=== PATIENT | male | born 1980 | race Caucasian/White ===

== ENCOUNTER 2017-02-25 15:55 | Emergency (ER) | payer OTHER ==
[~2017-02-25] VITALS: Ht 175.3 cm; Wt 74.8 kg
[~2017-02-25 15:55] MED LIST: AUGMENTIN 875-1 EACH PO; CLINDAMYCIN HC300 MG PO; DOXYCYCLINE HY100 MG PO; IBUPROFEN800 MG PO; INDOMETHACIN25 MG PO; NAPROXEN500 MG PO; NORCO 5-325 TA1 EACH PO; OMEPRAZOLE20 MG PO; TRAMADOL HCL50 MG PO
[2017-02-25] MEDS ORDERED: PENICILLIN V P500 MG PO (16:05)
[2017-02-25] MEDS ORDERED: CLEOCIN HCL300 MG PO (16:18)
[2017-02-25] MEDS ORDERED: ULTRAM50 MG PO (16:18)
== END 2017-02-25 16:40 | disposition home or self-care (01) ==
LOC: ED 15:55
DX: K08.89 Other specified disorders of teeth and supporting structures (principal); F17.200 Nicotine dependence, unspecified, uncomplicated
CPT/HCPCS: 99283

== ENCOUNTER 2017-12-02 21:35 | Emergency (ER) | payer OTHER ==
[~2017-12-02] VITALS: Ht 175.3 cm; Wt 98.4 kg
[~2017-12-02 21:35] MED LIST changes: +CLEOCIN HCL300 MG PO; +PENICILLIN V P500 MG PO; +ULTRAM50 MG PO
[2017-12-03] MEDS ORDERED: PROTONIX40 MG PO (00:01)
--- NOTE | 2017-12-03 12:34 | EKG ---
[facility] [address] [place] [address] Signed Normal sinus rhythm with sinus arrhythmia Normal ECG When compared with ECG of 31-OCT-2016 11:39, No significant change was found Confirmed by DARRIUS LITTLEJOHN MD ([id number]) on 12/03/2017 12:34:21 PM Electronically Signed By: DARRIUS LITTLEJOHN MD 12/03/17 1234 PATIENT NAME: MARIA EBROOKLYN Electrocardiogram DATE OF : 80 PHYSICIAN: DARRIUS LITTLEJOHN MD REPORT #: [id number] REPORT IS CONFIDENTIAL AND NOT TO BE RELEASED WITHOUT AUTHORIZATION
== END 2017-12-03 00:15 | disposition home or self-care (01) ==
LOC: ED 21:35
DX: R10.11 Right upper quadrant pain (principal); R10.12 Left upper quadrant pain; F17.200 Nicotine dependence, unspecified, uncomplicated
CPT/HCPCS: 74177; 80053; 81001; 83690; 85025; 93005; 93010; 99284; Q9967

== ENCOUNTER 2019-05-26 15:31 | Emergency (ER) | payer OTHER ==
[~2019-05-26] VITALS: Ht 177.8 cm; Wt 99.8 kg
--- OUTSIDE RECORDS SUMMARY | ~2019-05-26 | XMS | Encounter Summary ---
Demographics + + + | Address | [address] | | | [place] [address] | + + + | Home Phone | | + + + | Preferred Language | Unknown | + + + | Marital Status | Single | + + + | Confucianism Affiliation | Unknown | + + + | Race | Unknown | + + + | Ethnic Group | Unknown | + + + Author + + + | Author | [facility] | | | and Mohsenana | + + + | Organization | [facility] | | | and Mohsenana | + + + | Address | Unknown | + + + | Phone | Unavailable | + + + Support + + +---------+ + | Name | Relationship | Address | Phone | + + +---------+ + | Alysa Ojeda | ECON | Unknown | | + + +---------+ + Care Team Providers + +------+ + | Care Fashion Buying Internship Name | Role | Phone | + +------+ + PCP | Unavailable | + +------+ + Encounter Details +--------+ + + + + | Date | Type | Department | Care Team | Description | +--------+ + + + + | 06/23/ | Hospital | [facility] | | | | 1993 | Encounter | [facility] EM[facility] | | | | | | CENTER [address] | | | | | | [place] | | | | | | [address] | | | | | | [phone] | | | +--------+ + + + + Social History + +-------+ +--------+------+ | Tobacco Use | Types | Packs/Day | Years | Date | | | | | Used | | + +-------+ +--------+------+ | Never Assessed | | | | | + +-------+ +--------+------+ + + + | Sex Assigned at | Date Recorded | | | | + + + | Not on file | | + + + + + + + | Job Start Date | Occupation | Industry | + + + + | Not on file | Not on file | Not on file | + + + + + + + + | Travel History | Travel Start | Travel End | + + + + + + | No recent travel history available. | + + documented as of this encounter Plan of Treatment Not on filedocumented as of this encounter Visit Diagnoses Not on filedocumented in this encounter"
--- OUTSIDE RECORDS SUMMARY | ~2019-05-26 | XMS | Encounter Summary ---
Demographics + + + | Address | [address] | | | [place] [address] | + + + | Home Phone | | + + + | Preferred Language | Unknown | + + + | Marital Status | Single | + + + | Scientologist Affiliation | Unknown | + + + | Race | Unknown | + + + | Ethnic Group | Unknown | + + + Author + + + | Author | [facility] | | | and Mohsenana | + + + | Organization | [facility] | | | and Mohsenana [...] Team Providers + +------+ + | Care Rn Infusion Name | Role | Phone | + +------+ + | Sandeep Garza DO | PCP | | + +------+ + Encounter Details +--------+ + + + + | Date | Type | Department | Care Team | Description | +--------+ + + + + | 01/29/ | Orders Only | [facility] | Provider, | | | 2018 | | SYSTEM GENERIC OP | [address] | | | | | [address] | [address] | | | | | [address] [place], [place] | [place] [address] | | | | | [address] | | | | | | [phone] | | | +--------+ + + + + Social History + + + +--------+ + | Tobacco Use | Types | Packs/Day | Years | Date | | | | | Used | | + + + +--------+ + | Current Every Day | Cigarettes | 0.25 | 20 | Started: 04/22/1994 | | Smoker | | | | | + + + +--------+ + + +---+---+---+ | Smokeless Tobacco: | | | | | Never Used | | | | + +---+---+---+ + + | Comments: 04/29/17: "Almost done" | + + + + +---------+ + | Alcohol Use | Drinks/Week | oz/Week | Comments | + + +---------+ + | No | | | | + + +---------+ + + + + | Sex Assigned at [...] Visit Diagnoses Not on filedocumented in this encounter
--- OUTSIDE RECORDS SUMMARY | ~2019-05-26 | XMS | Encounter Summary ---
Demographics + + + | Address | [address] | | | [place] [address] | + + + | Home Phone | | + + + | Preferred Language | Unknown | + + + | Marital Status | Single | + + + | Sabianism Affiliation | Unknown | + + + | Race | Unknown | + + + | Ethnic Group | Unknown | + + + Author + + + | Author | [facility] | | | and Mohsenana | + + + | Organization | [facility] | | | and Mohsenana [...] Team Providers + +------+ + | Care Furnace Charging Machine Operator Name | Role | Phone | + +------+ + | Sandeep Garza DO | PCP | | + +------+ + Encounter Details +--------+ + + + + | Date | Type | Department | Care Team | Description | +--------+ + + + + | 01/18/ | Abstract | [facility] [place] | Derrick De Dios | | | 2017 | | PULMONARY [address] | [address] | | | | | [place], | [place] | | | | | [place] [address] | [place] [address] | | | | | [phone] | [phone] | | | | | | | | +--------+ + + + + Social History + + + +--------+------+ | Tobacco Use | Types | Packs/Day | Years | Date | | | | | Used | | + + + +--------+------+ | Former Smoker | Cigarettes | 0.5 | 20 | | + + + +--------+------+ + +---+---+---+ | Smokeless Tobacco: | | | | | Never Used | | | | + +---+---+---+ + + +---------+ + | Alcohol Use [...]
--- OUTSIDE RECORDS SUMMARY | ~2019-05-26 | XMS | Encounter Summary ---
Demographics + + + | Address | [address] | | | [place] [address] | + + + | Home Phone | | + + + | Preferred Language | Unknown | + + + | Marital Status | Single | + + + | Jainism Affiliation | Unknown | + + + | Race | Unknown | + + + | Ethnic Group | Unknown | + + + Author + + + | Author | [facility] | | | and Mohsenana | + + + | Organization | [facility] | | | and Mohsenana [...] Team Providers + +------+ + | Care Dry House Tender Name | Role | Phone | + +------+ + | Sandeep Garza DO | PCP | | + +------+ + Reason for Visit + + + | Reason | Comments | + + + | Dental Pain | | + + + Encounter Details +--------+ + + + + | Date | Type | Department | Care Team | Description | +--------+ + + + + | 07/05/ | Emergency | [facility] | Padilla Abrams | Pain due to dental | | 2015 | | MED CTR EM[facility]Y | Jeffry Valdez MD | caries (Primary Dx) | | | | CENTER [address] | [address] | | | | | [place], [place] | [place], [place] | | | | | [address] | [address] | | | | | [phone] | | | +--------+ + + + + Social History + + + +--------+------+ | Tobacco Use | Types | Packs/Day | Years | Date | | | | | Used | | + + + +--------+------+ | Current Every Day | Cigarettes | 0.5 | 20 | | | Smoker | | | | | + + + +--------+------+ + [...] + + documented as of this encounter Last Filed Vital Signs + + + + + | Vital Sign | Reading | Time Taken | Comments | + + + + + | Blood Pressure | 167/120 | 07/05/2014 8:00 PM | | | | | PST | | + + + + + | Pulse | 81 | 07/05/2014 8:00 PM | | | | | PST | | + + + + + | Temperature | 36.8 C (98.3 F) | 07/05/2014 8:00 PM | | | | | PST | | + + + + + | Respiratory Rate | 16 | 07/05/2014 8:00 PM | | | | | PST | | + + + + + | Oxygen Saturation | 99% | 07/05/2014 8:00 PM | | | | | PST | | + + + + + | Inhaled Oxygen | - | - | | | Concentration | | | | + + + + + | Weight | 78 kg (172 lb) | 07/05/2014 8:00 PM | | | | | PST | | + + + + + | Height | 175.3 cm (5' 9") | 07/05/2014 8:00 PM | | | | | PST | | + + + + + | Body Mass Index | 25.4 | 07/05/2014 8:00 PM | | | | | PST | | + + + + + documented in this encounter Discharge Instructions Instructions Padilla Abrams MD - 07/05/2014Followup with a dentist. Return f or severe worsening symptoms. Use ibuprofen or Advil for pain unless contraindicated. Try using lbei-ttu-zkeqnts oral analgesic medications to assist in easing the pain. Practice good oral hygiene, do saltwater gargles for mouth cleansing. Please followup with dental clinic, the lower available resources. Dental Resources in the [facility] Care: [phone] Emergency care check-in times Tuesday through : 7 AM and 11 AM Tuesday: 7 AM This is a first-come first-serve service with limited space so arrive early and expect a possible several hour wait. [facility] [place]: [phone] [facility] information: [phone] documented in this encounter Medications at Time of Discharge + + + +---------+ + + | Medication | Sig | Dispensed | Refills | Start | End Date | | | | | | Date | | + + + +---------+ + + | amoxicillin | Take 1 capsule by | 30 | 0 | 07/05/19 | | | (AMOXIL) 500 MG | mouth 3 times daily | capsule | | 15 | 5 | | capsule | for 10 days. | | | | | + + + +---------+ + + | | Take 1 tablet by | | 0 | | | | HYDROcodone-acetamin | mouth every 6 hours | | | | 7 | | ophen (NORCO) | as needed. | | | | | | 7.5-325 mg per | | | | | | | tablet | | | | | | + + + +---------+ + + | ibuprofen | Take 1 tablet by | 40 | 0 | 07/05/19 | | | (ADVIL,MOTRIN) 600 | mouth every 6 hours | tablet | | 15 | 5 | | MG tablet | as needed for Pain | | | | | | | for up to 10 days. | | | | | + + + +---------+ + + documented as of this encounter Plan of Treatment Not on filedocumented as of this encounter Visit Diagnoses + + | Diagnosis | + + | Pain due to dental caries - Primary | + + documented in this encounter Administered Medications + + + +--------+------+------+ | Medication Order | MAR | Action | Dose | Rate | Site | | | Action | Date | | | | + + + +--------+------+------+ | amoxicillin (AMOXIL) capsule | Dispense | 07/05/19 | 500 mg | | | | (ED prepack) 500 mg 500 mg, | to Home | 15 9:20 | | | | | Oral, EVERY 8 HOURS (3 times per | | PM PST | | | | | day), First dose on Tue07/05/14 at | | | | | | | 2200, Take 1 tablet(s) orally | | | | | | | every 8 hours . Dispense for | | | | | | | home use. Enter order number on | | | | | | | MAR when dispensing., | | | | | | + + + +--------+------+------+ +---+---+ | | | +---+---+ + +-------+ +---------+---+---+ | bupivacaine 0.5%-epinephrine | Given | 07/05/19 | 1.8 mLs | | | | 1:200,000 0.5-1:956157 % | | 15 8:38 | | | | | injection 1.8 mL 1.8 mL, | | PM PST | | | | | Infiltration, ONCE, Tue07/05/14 at | | | | | | | 2030, For 1 dose | | | | | | + +-------+ +---------+---+---+ +---+---+ | | | +---+---+ documented in this encounter
--- OUTSIDE RECORDS SUMMARY | ~2019-05-26 | XMS | Clinical Summary ---
Demographics + + + | Address | [address] | | | [place] [address] | + + + | Home Phone | | + + + | Preferred Language | Unknown | + + + | Marital Status | Single | + + + | Anabaptist Affiliation | Unknown | + + + | Race | Unknown | + + + | Ethnic Group | Unknown | + + + Author + + + | Author | [facility] | | | and Mohsenana | + + + | Organization | [facility] | | | and Mohsenana | [...] Team Providers + +------+ + | Care Hospice Care Consultant Name | Role | Phone | + +------+ + | Sandeep Garza DO | PCP | | + +------+ + Allergies No Known Allergies Medications + + + +---------+------+------+-------+ | Medication | Sig | Dispensed | Refills | Star | End | Statu | | | | | | t | Date | s | | | | | | Date | | | + + + +---------+------+------+-------+ | metoprolol | Take 1 tablet by | | 0 | 03/0 | | Activ | | succinate | mouth daily. | | | 6/20 | | e | | (TOPROL-XL) 50 mg 24 | | | | 18 | | | | hr tablet | | | | | | | + + + +---------+------+------+-------+ | clindamycin | take 1 capsule by | | 0 | 01/1 | | Activ | | (CLEOCIN) 300 MG | mouth four times a | | | 12/21 | | e | | capsule | day until finished | | | 19 | | | + + + +---------+------+------+-------+ | NIFEdipine (ADALAT | take 1 tablet by | | 1 | 11/0 | | Activ | | CC) 30 mg 24 hr | mouth once daily | | | 20 | | e | | tablet | | | | 18 | | | + + + +---------+------+------+-------+ | penicillin 500 mg | take 1 tablet by | | 0 | 01/0 | | Activ | | tablet | mouth every 8 hours | | | 20 | | e | | | until finished | | | 19 | | | + + + +---------+------+------+-------+ | traMADol (ULTRAM) | take 1 tablet by | | 0 | 02/0 | | Activ | | 50 mg tablet | mouth EVERY 4 TO 6 | | | 5/20 | | e | | | HOURS if needed for | | | 19 | | | | | pain | | | | | | + + + +---------+------+------+-------+ Active Problems + + + | Problem | Noted Date | + + + | Cough in adult | 03/24/2017 | + + + | Precordial pain | 12/22/2016 | + + + Family History + + +------+ + | Medical History | Relation | Name | Comments | + + +------+ + | Hypertension | Father | | | + + +------+ + | Hypertension | Father | | | + + +------+ + | Hypertension | Mother | | | + + +------+ + + +------+--------+ + | Relation | Name | Status | Comments | + +------+--------+ + | Father | | | | + +------+--------+ + | Father | | Alive | | + +------+--------+ + | Father | | | | + +------+--------+ + | Mother | | | | + +------+--------+ + | Mother | | Alive | | + +------+--------+ + Social History + + + +--------+ [...] | | + +---+---+---+ + + | Tobacco Cessation: Ready to Quit: No; Counseling Given: No | | Comments: 04/29/17: "Almost done" | + [...] recent travel history available. | + + Last Filed Vital Signs + + + + + | Vital Sign | Reading | Time Taken | Comments | + + + + + | Blood Pressure | 114/55 | 09/09/2017 11:29 AM | | | | | PST | | + + + + + | Pulse | 45 | 09/09/2017 11:29 AM | | | | | PST | | + + + + + | Temperature | 36.8 C (98.3 F) | 09/09/2017 11:29 AM | | | | | PST | | + + + + + | Respiratory Rate | 16 | 09/09/2017 11:29 AM | | | | | PST | | + + + + + | Oxygen Saturation | 97% | 04/29/2017 8:33 AM | | | | | PDT | | + + + + + | Inhaled Oxygen | - | - | | | Concentration | | | | + + + + + | Weight | 93.9 kg (207 lb) | 09/09/2017 11:29 AM | | | | | PST | | + + + + + | Height | 177.8 cm (5' 10") | 09/09/2017 11:29 AM | | | | | PST | | + + + + + | Body Mass Index | 29.7 | 09/09/2017 11:29 AM | | | | | PST | | + + + + + Plan of Treatment + + + + + | Health Maintenance | Due Date | Last Done | Comments | + + + + + | Vaccine: | | | | | Pneumococcal 19-64 | 6 | | | | (1 of 1 - PPSV23) | | | | + + + + + | Vaccine: | | | | | Dtap/Tdap/Td (1 - | 9 | | | | Tdap) | | | | + + + + + | Vaccine: Influenza | | | | | (#1) | 9 | | | + + + + + Results Not on filefrom Last 3 Months Insurance + +--------+ +--------+ +---------+--------+ | Payer | Benefi | Subscriber | Effect | Phone | Address | Type | | | t Plan | ID | arben | | | | | | / | | Dates | | | | | | Group | | | | | | + +--------+ +--------+ +---------+--------+ | [employer] | [employer] | [id number] | 01/07/20 | [phone] | | Medica | | MEDICAID HMO | HEALTH | | 17-Pre | 1 | | id | | | MDCD | | sent | | | | | | [place]MO [place] | | | | | | + +--------+ +--------+ +---------+--------+ + +--------+ +--------+ + + | Guarantor Name | Accoun | Relation to | Date | Phone | Billing Address | | | t Type | Patient | of | | | | | | | | | | + +--------+ +--------+ + + | Gregorio Ojeda | Person | Self [birth year] | [address] | | [place] | al/Fam | | 1980 | [phone] | [place] [address] | | | sammy | | | 2 (Home) | | + +--------+ +--------+ + + Advance Directives + + + + + | Type | Date Recorded | Patient | Explanation | | | | Health And Wellness Instructor | | + + + + + | Power of | | | | | Heat Seal Operator | | | | + + + + + | Advance | 12/25/2013 7:49 | | | | Directive | PM | | | + + + + +
--- OUTSIDE RECORDS SUMMARY | ~2019-05-26 | XMS | Encounter Summary ---
Demographics + + + | Address | [address] | | | [place] [address] | + + + | Home Phone | | + + + | Preferred Language | Unknown | + + + | Marital Status | Single | + + + | Hoahaoism Affiliation | Unknown | + + + | Race | Unknown | + + + | Ethnic Group | Unknown | + + + Author + + + | Author | [facility] | | | and Mohsenana | + + + | Organization | [facility] | | | and Mohsenana [...] Team Providers + +------+ + | Care Plaster Helper Name | Role | Phone | + +------+ + | Sandeep Garza DO | PCP | | + +------+ + Encounter Details +--------+ + + + + | Date | Type | Department | Care Team | Description | +--------+ + + + + | 04/29/ | [facility] | [facility] | Derrick De Dios | Chronic cough | | 2017 | Encounter | MED CTR PULMONARY | [address] | | | | | FUNCTION [address] | [place] | | | | | [place], | [place] [address] | | | | | [place] [address] | [phone] | | | | | [phone] | | | +--------+ + + + + Social History + + + +--------+ + | Tobacco Use | Types | Packs/Day | Years | Date | | | | | Used | | + + + +--------+ + | Current Some Day | Cigarettes | 0.1 | 20 | Started: 04/22/1994 | | [...] Not on filedocumented as of this encounter Procedures + +--------+ + + + | Procedure Name | Priori | Date/Time | Associated Diagnosis | Comments | | | ty | | | | + +--------+ + + + | PFT PULMONARY | Routin | 04/29/2017 | Chronic cough | Results for this | | FUNCTION TESTING | e | 5:26 PM | | procedure are in the | | ORDERS | | PDT | | results section. | + +--------+ + + + documented in this encounter Results Pulmonary function test full PFT (04/29/2017 5:26 PM PDT) + + + | Narrative | Performed At | + + + | Derrick Mahan | | | MD Lanre 04/29/2017 17:28 PULMONARY FUNCTION TESTING | | | SPIROMETRY: The FVC was 4.80 L or 93 % of predicted. The FEV1 was 3.44 | | | L or 83 % of predicted. FEV1/FVC ratio was 72 %. LUNG VOLUMES: The | | | total lung capacity was 7.21 L or 108 % of predicted. The residual | | | volume was 2.29 L or 134 % of predicted. RV/TLC ratio was 124 % of | | | predicted. DIFFUSION CAPACITY: The diffusion capacity was 23.6 | | | mL/mmHg per minute or 62 % of predicted. IMPRESSION: Spirometry is | | | consistent with normal physiology. Lung volume testing is consistent | | | with borderline air trapping obstructive physiology. Diffusion | | | capacity is mildly reduced consistent with mild emphysema and is not | | | corrected for measured hemoglobin. Test performed: Patient was | | | cooperative and spirometry was acceptable and | | | reproducibleElectronically signed by: Derrick De Dios MD 04/29/2017 | | | 17:26[facility] | | |IMPRESSION: Spirometry is consistent with normal physiology. Lung | | |volume testing is consistent with borderline air trapping | | |obstructive physiology. Diffusion capacity is mildly reduced | | |consistent with mild emphysema and is not corrected for measured | | |hemoglobin. | | | | | |Test performed: Patient was cooperative and spirometry was | | |acceptable and reproducible | | |Electronically signed by: Derrick De Dios MD 04/29/2017 17:26 | | |[facility] | | | | | + + + documented in this encounter Visit Diagnoses + + | Diagnosis | + + | Chronic cough Cough | + + documented in this encounter
--- OUTSIDE RECORDS SUMMARY | ~2019-05-26 | XMS | Encounter Summary ---
Demographics + + + | Address | [address] | | | [place] [address] | + + + | Home Phone | | + + + | Preferred Language | Unknown | + + + | Marital Status | Single | + + + | Tenriism Affiliation | Unknown | + + + | Race | Unknown | + + + | Ethnic Group | Unknown | + + + Author + + + | Author | [facility] | | | and Mohsenana | + + + | Organization | [facility] | | | and Mohsenana [...] Team Providers + +------+ + | Care Budget Accountant Name | Role | Phone | + +------+ + PCP | Unavailable | + +------+ + Encounter Details +--------+ + + + + | Date | Type | Department | Care Team | Description | +--------+ + + + + | 09/17/ | Hospital | [facility] | John Montero MD | | | 2005 | Encounter | MED CTR GENERIC OP | [address] | | | | | CONV DEPT [address] | [address] | | | | | [place], | [id number] | | | | | [place] [address] | | | | | | [phone] | | | +--------+ + + + [...]
--- OUTSIDE RECORDS SUMMARY | ~2019-05-26 | XMS | Encounter Summary ---
Demographics + + + | Address | [address] | | | [place] [address] | + + + | Home Phone | | + + + | Preferred Language | Unknown | + + + | Marital Status | Single | + + + | Druze Affiliation | Unknown | + + + | Race | Unknown | + + + | Ethnic Group | Unknown | + + + Author + + + | Author | [facility] | | | and Mohsenana | + + + | Organization | [facility] | | | and Mohsenana | [...] Team Providers + +------+ + | Care It Sales Executive Name | Role | Phone | + +------+ + | Sandeep Garza DO | PCP | | + +------+ + Encounter Details +--------+ + + + + | Date | Type | Department | Care Team | Description | +--------+ + + + + | 03/23/ | Orders Only | [facility] [place] | Derrick De Dios | Cough (Primary Dx) | | 2017 | | PULMONARY [address] | [address] | | | | | [place], | [place] | | | | | [place] [address] | [place] [address] | | | | | [phone] | [phone] | | | | | | | | +--------+ + + + + Social History + + + +--------+ + | Tobacco Use | Types | Packs/Day | Years | Date | | | | | Used | | + + + +--------+ + | Light Tobacco Smoker | Cigarettes | 0.1 | 20 | Started: 04/22/1994 | + + + +--------+ + + +---+---+---+ | Smokeless Tobacco: | | | | | Never Used | | | | + +---+---+---+ + + | Comments: 03/23/17: Sometimes just one cig/day | + + + + +---------+ + [...] Not on filedocumented as of this encounter Results Culture, Respiratory, Lower, Smear (03/23/2017 11:17 AM PDT) + + + + + + | Component | Value | Ref Range | Performed | Pathologist | | | | | At | Signature | + + + + + + | Gram Stain | 1+ White Blood Cells | | [facility] | | | Result | | | [facility] | | | | | | [facility] | | | | | [facility] - | | | | | | LABORATORY | | + + + + + + | Gram Stain | 2+ Epithelial cells | | [facility] | | | Result | | | [facility] | | | | | | [facility] | | | | | | [facility] - | | | | | | LABORATORY | | + + + + + + | Gram Stain | 4+ Gram positive cocci | | [facility] | | | Result | | | [facility] | | | | | | [facility] | | | | | | [facility] - | | | | | | LABORATORY | | + + + + + + | Gram Stain | 4+ Gram variable | | [facility] | | | Result | rodsComment: Poor | | [facility] | | | | specimen, recollection | | MEDICAL | | | | recommended | | CENTER - | | | | | | LABORATORY | | + + + + + + + + | Specimen | + + | Respiratory - | | Coughed sputum | | specimen (specimen) | + + + + + | Narrative | Performed At | + + + | Doctor actually wanted Cytology done, not a culture. | [facility] | | [facility] | | | - LABORATORY | + + + + + + + + | Performing | Address | City/State/Zipcode | Phone Number | | Organization | | | | + + + + + | [facility] [facility] | [address] [place] | [place] | [phone] | | [facility] | | [address] | | | - LABORATORY | | | | + + + + + documented in this encounter Visit Diagnoses + + | Diagnosis | + + | Cough - Primary | + + documented in this encounter"
--- OUTSIDE RECORDS SUMMARY | ~2019-05-26 | XMS | Encounter Summary ---
Demographics + + + | Address | [address] | | | [place] [address] | + + + | Home Phone | | + + + | Preferred Language | Unknown | + + + | Marital Status | Single | + + + | Uatsdin Affiliation | Unknown | + + + | Race | Unknown | + + + | Ethnic Group | Unknown | + + + Author + + + | Author | [facility] | | | and Mohsenana | + + + | Organization | [facility] | | | and Mohsenana | [...] Team Providers + +------+ + | Care Storage Receipt Poster Name | Role | Phone | + +------+ + | No, Physician | PCP | Unavailable | + +------+ + Reason for Visit + + + | Reason | Comments | + + + | Headache (Adult - | | | New Onset Or New | | | Symptoms) | | + + + | Altered Mental | | | Status | | + + + Encounter Details +--------+ + + + + | Date | Type | Department | Care Team | Description | +--------+ + + + + | 12/25/ | Emergency | [facility] | [place], | Headache (Primary | | 2013 | | [facility] | Padilla Mederos MD [address] | Dx); Acute confusion | | | | CENTER [address] | [address] [place] | | | | | [place], [place] | [place] [address] | | | | | [address] | [phone] | | | | | [phone] | | | +--------+ + + + + Social History + + + +--------+------+ | Tobacco Use | Types | Packs/Day | Years | Date | | | | | Used | | + + + +--------+------+ | Current Every Day | Cigarettes | 0.5 | | | | Smoker | | | | | + + + +--------+------+ + + +---------+ + | Alcohol Use [...] + + + | Blood Pressure | 162/112 | 12/25/2013 7:05 PM | | | | | PDT | | + + + + + | Pulse | 99 | 12/25/2013 7:05 PM | | | | | PDT | | + + + + + | Temperature | 37 C (98.6 F) | 12/25/2013 7:05 PM | | | | | PDT | | + + + + + | Respiratory Rate | 18 | 12/25/2013 7:05 PM | | | | | PDT | | + + + + + | Oxygen Saturation | 97% | 12/25/2013 7:05 PM | | | | | PDT | | + + + + + | Inhaled Oxygen | - | - | | | Concentration | | | | + + + + + | Weight | 78.9 kg (174 lb) | 12/25/2013 7:05 PM | | | | | PDT | | + + + + + | Height | 175.3 cm (5' 9") | 12/25/2013 7:05 PM | | | | | PDT | | + + + + + | Body Mass Index | 25.7 | 12/25/2013 7:05 PM | | | | | PDT | | + + + + + documented in this encounter Discharge Instructions Instructions Padilla Peña MD - 12/25/2013Return for worsening symptoms or any oth er concerns. How to obtain a personal physician: Check with your insurance provider for a list of authorized medical providers. Call local medical groups to obtain names of physicians currently accepting new patients an d schedule an appointment. If you're having difficulty, feel free to contact our hospital care managers ([phone]) for assistance. [facility] Internal Medicine or Family Medicine [address] [place] [address] Renetta Jackson. [phone] [place] [facility] [address] [facility] [phone] [facility] Check with [facility] about state assistance programs. [address] [facility] [phone] [facility] (will not fill narcotic medications) [address] [phone] Tuesday 3 PM to 5 PM Tuesday 3 PM 5 PM [facility] [address] [phone] documented in this encounter Plan of Treatment Not on filedocumented as of this encounter Procedures + +--------+ + + + | Procedure Name | Priori | Date/Time | Associated Diagnosis | Comments | | | ty | | | | + +--------+ + + + | CT HEAD WO CONTRAST | STAT | 12/25/2013 | | Results for this | | | | 8:02 PM | | procedure are in the | | | | PDT | | results section. | + +--------+ + + + | CBC WITH | STAT | 12/25/2013 | | Results for this | | DIFFERENTIAL | | 7:33 PM | | procedure are in the | | | | PDT | | results section. | + +--------+ + + + | BASIC METABOLIC | STAT | 12/25/2013 | | Results for this | | PANEL | | 7:33 PM | | procedure are in the | | | | PDT | | results section. | + +--------+ + + + documented in this encounter Results CT Head wo Contrast (12/25/2013 8:02 PM PDT) + + | Specimen | + + | | + + + + + | Narrative | Performed At | + + + | CT HEAD WITHOUT CONTRAST: 12/25/2013 8:02 PM CLINICAL HISTORY: | MISCELANIOUS | | HEADACHE (ADULT - NEW ONSET OR NEW SYMPTOMS) ALTERED MENTAL STATUS | LAB | | TECHNIQUE: Axial images are obtained from skull base to calvarium | | | without the use of contrast. Study is reviewed in multiplanar | | | reformations. COMPARISON: None FINDINGS:There is no | | | intra-axial or extra-axial hemorrhage or midline shift. The | | | ventricular spaces, CSF cisterns and sulci are within normal limits. | | | Pratt-white differentiation is normal. No mass or mass effect. No | | | areas of infarct. Posterior fossa contents are normal with no Chiari | | | malformation. No orbital abnormality. Mastoids and paranasal sinuses | | | are normally aerated. No bony abnormality. IMPRESSION - Normal | | | noncontrast CT of head. Dictated and Signed by: Yamil Herring MD | | | Electronically signed: 12/26/2013 6:49 AM | | + + + + + | Procedure Note | + + | Rao, Rad Results In - 12/26/2013 6:[address] HEAD WITHOUT CONTRAST: 12/25/2013 | | 8:02 PMCLINICAL HISTORY: HEADACHE (ADULT - NEW ONSET OR NEW SYMPTOMS)ALTERED MENTAL | | STATUSTECHNIQUE: Axial images are obtained from skull base to calvarium without theuse | | of contrast. Study is reviewed in multiplanar reformations.COMPARISON: | | NoneFINDINGS:There is no intra-axial or extra-axial hemorrhage or midline shift. | | Theventricular spaces, CSF cisterns and sulci are within normal limits. | | Pratt-whitedifferentiation is normal. No mass or mass effect. No areas of | | infarct.Posterior fossa contents are normal with no Chiari malformation. No | | orbitalabnormality. Mastoids and paranasal sinuses are normally aerated. No | | bonyabnormality.IMPRESSION -Normal noncontrast CT of head.Dictated and Signed by: Yamil | | MD Nima Electronically signed: 12/26/2013 6:49 AM | |ventricular spaces, CSF cisterns and sulci are within normal limits. Pratt-white | |differentiation is normal. No mass or mass effect. No areas of infarct. | |Posterior fossa contents are normal with no Chiari malformation. No orbital | |abnormality. Mastoids and paranasal sinuses are normally aerated. No bony | |abnormality. | | | |IMPRESSION - | |Normal noncontrast CT of head. | | | |Dictated and Signed by: Yamil Herring MD | | Electronically signed: 12/26/2013 6:49 AM | + + + +---------+ + + | Performing | Address | City/State/Zipcode | Phone Number | | Organization | | | | + +---------+ + + | [facility] | | | [phone] | + +---------+ + + | [facility]ISC[facility] | | | [phone] | + +---------+ + + Basic Metabolic Panel (12/25/2013 7:33 PM PDT) + + + + + + | Component | Value | Ref Range | Performed | Pathologist | | | | | At | Signature | + + + + + + | Na | 137 | 136 - 149 | [facility] | | | | | mmol/L | [facility] | | | | | [facility] | | | | | [facility] - | | | | | | LABORATORY | | + + + + + + | K | 3.7 | 3.5 - 5.1 | [facility] | | | | | mmol/L | [facility] | | | | | | [facility] | | | | | | CENTER - | | | | | | LABORATORY | | + + + + + + | Cl | 107 | 98 - 109 mmol/L | [facility] | | | | | | [facility] | | [facility] | | | [facility] | | | | | | CENTER - | | | | | | LABORATORY | | + + + + + + | CO2 | 22 (L) | 24 - 31 mmol/L | [facility] | | | | | | [facility] | [facility] | [facility] | [facility] | | | | | | CENTER - | | | | | | LABORATORY | | + + + + + + | Anion Gap | 8 | 3 - 16 mmol/L | [facility] | | | | | | [facility] | [facility] | [facility] | | | | | | C[facility] - | | | | | | LABORATORY | | + + + + + + | Glucose | 105 | 70 - 109 mg/dL | [facility] | | | | | | [facility] | | | [facility] | [facility] | | | | | | CENTER - | | | | | | LABORATORY | | + + + + + + | BUN | 11 | 7 - 18 mg/dL | [facility] | | | | | | [facility] | | | | | | [facility] | | | | | | CENTER - | | | | | | LABORATORY | | + + + + + + | Creatinine | 1.09 | 0.60 - 1.30 | [facility] | | | | | mg/dL | [facility] | | | | | | [facility] | | | | | | CENTER - | | | | | | LABORATORY | | + + + + + + | eGFR if not | >60Comment: GLOMERULAR | >=60 | [facility] | | | | FILTRATION | mL/min/1.73m2 | [facility] | | | [place] | RATE,ESTIMATED | | MEDICAL | | | | mL/min/1.02t7Yeog than | | CENTER - | | | | 60 Chronic kidney | | LABORATORY | | | | disease,if found over a | | | | | | 3-month period.Less than | | | | | | 15 Kidney failureFor | | | | | | | | | | | | Americans,multiply the | | | | | | calculated GFR by 1.21. | | | | | | | | | | + + + + + + | Calcium | 9.4 | 8.3 - 10.5 | [facility] | | | | | mg/dL | [facility] | | | | | | [facility] | | | | | | CENTER - | | | | | | LABORATORY | | + + + + + + | BUN/Creatin | 10.1 | | [facility] | | | ine Ratio | | | [facility] | | | | | | [facility] | | | | | | CENTER - | | | | | | LABORATORY | | + + + + + + + + | Specimen | + + | Blood | + + + + + + + | Performing | Address | City/State/Zipcode | Phone Number | | Organization | | | | + + + + + | [facility] | [address] | [place] | [phone] | | [facility] | | [address] | | | - LABORATORY | | | | + + + + + | [facility] | [address] | [place], [place] | | | [facility] | | [address] | | | - LABORATORY | | | | + + + + + CBC with Differential (12/25/2013 7:33 PM PDT) + + + + + + | Component | Value | Ref Range | Performed | Pathologist | | | | | At | Signature | + + + + + + | WBC | 8.4 | 4.0 - 11.0 K/uL | [facility] | | | | | | [facility] | | | | | | [facility] | | | | | | CENTER - | | | | | | LABORATORY | | + + + + + + | RBC | 5.87 (H) | 4.30 - 5.70 | [facility] | | | | | M/uL | [facility] | | | | | | MEDICAL | | | | | | CENTER - | | | | | | LABORATORY | | + + + + + + | Hemoglobin | 16.1 | 13.5 - 18.0 | [facility] | | | | | g/dL | [facility] | | | | | | [facility]ICAL | | | | | | CENTER - | | | | | | LABORATORY | | + + + + + + | Hematocrit | 47.6 | 40.0 - 51.0 % | [facility] | | | | | | [facility] | | | | | | [facility] | | | | | | CENTER - | | | | | | LABORATORY | | + + + + + + | MCV | 81.0 (L) | 83.0 - 101.0 fL | [facility] | | | | | | [facility] | | | | | | [facility] | | | | | | CENTER - | | | | | | LABORATORY | | + + + + + + | MCH | 27.4 (L) | 28.0 - 35.0 pg | [facility] | | | | | | [facility] | | | | | | [facility] | | | | | | CENTER - | | | | | | LABORATORY | | + + + + + + | MCHC | 33.8 | 32.0 - 36.0 | [facility] | | | | | g/dL | [facility] | | | | | | MEDICAL | | | | | | CENTER - | | | | | | LABORATORY | | + + + + + + | RDW-CV | 13.3 | <15.0 % | [facility] | | | | | | [facility] | | | | | | [facility] | | | | | | CENTER - | | | | | | LABORATORY | | + + + + + + | Platelet | 200 | 140 - 440 K/uL | [facility] | | | Count | | | [facility] | | | | | | MEDICAL | | | | | | CENTER - | | | | | | LABORATORY | | + + + + + + | MPV | 8.3 | fL | [facility] | | | | | | [facility] | | | | | | MEDICAL | | | | | | CENTER - | | | | | | LABORATORY | | + + + + + + | % | 74.9 | 45.0 - 82.0 % | [facility] | | | Neutrophils | | | [facility] | | | | | | MEDICAL | | | | | | CENTER - | | | | | | LABORATORY | | + + + + + + | % | 16.1 (L) | 20.0 - 45.0 % | [facility] | | | Lymphocytes | | | [facility] | | | | | | MEDICAL | | | | | | CENTER - | | | | | | LABORATORY | | + + + + + + | % Monocytes | 5.4 | 4.0 - 12.0 % | [facility] | | | | | | [facility] | | | | | | MEDICAL | | | | | | CENTER - | | | | | | LABORATORY | | + + + + + + | % | 3.0 | 0.0 - 5.0 % | [facility] | | | Eosinophils | | | [facility] | | | | | | MEDICAL | | | | | | CENTER - | | | | | | LABORATORY | | + + + + + + | % Basophils | 0.6 | 0.0 - 1.0 % | [facility] | | | | | | [facility] | | | | | | MEDICAL | | | | | | CENTER - | | | | | | LABORATORY | | + + + + + + | Absolute | 6.30 | 1.80 - 8.50 | [facility] | | | Neutrophils | | K/uL | [facility] | | | | | | MEDICAL | | | | | | CENTER - | | | | | | LABORATORY | | + + + + + + | Absolute | 1.40 | 0.60 - 3.20 | [facility] | | | Lymphocytes | | K/uL | [facility] | | | | | | [facility]ICAL | | | | | | CENTER - | | | | | | LABORATORY | | + + + + + + | Absolute | 0.50 | 0.00 - 1.00 | [facility] | | | Monocytes | | K/uL | [facility] | | | | | | [facility]ICAL | | | | | | CENTER - | | | | | | LABORATORY | | + + + + + + | Absolute | 0.20 | 0.00 - 0.40 | [facility] | | | Eosinophils | | K/uL | [facility] | | | | | | MEDICAL | | | | | | CENTER - | | | | | | LABORATORY | | + + + + + + | Absolute | 0.00 | 0.00 - 0.10 | [facility] | | | Basophils | | K/uL | [facility] | | | | | | MEDICAL | | | | | | CENTER - | | | | | | LABORATORY | | + + + + + + + + | Specimen | + + | Blood | + + + + + + + | Performing | Address | City/State/Zipcode | Phone Number | | Organization | | | | + + + + + | [facility] | [address] | [place] | [phone] | | [facility] | | [address] | | | - LABORATORY | | | | + + + + + | [facility] | [address] | [place] | | | [facility] | | [address] | | | - LABORATORY | | | | + + + + + documented in this encounter Visit Diagnoses + + | Diagnosis | + + | Headache - Primary | + + | Acute confusion Delirium due to conditions classified elsewhere | + + documented in this encounter
--- OUTSIDE RECORDS SUMMARY | ~2019-05-26 | XMS | Clinical Summary ---
Demographics + + + | Address | [address] | | | [place] [address] | + + + | Home Phone | | + + + | Preferred Language | Unknown | + + + | Marital Status | Single | + + + | Spiritism Affiliation | Unknown | + + + | Race | Unknown | + + + | Ethnic Group | Unknown | + + + Author + + + | Author | [facility] | | | and Mohsenana | + + + | Organization | [facility] | | | and Mohsenana [...] Team Providers + +------+ + | Care Flame Cutter Name | Role | Phone | + [...] | [employer] | [employer] | [id number] | 01/07/20 | [phone] | | Medica | | MEDICAID HMO [...] | 1980 | [phone] | [place] [address] | | | sammy | | | 2 (Home) | | + +--------+ +--------+ + + Advance Directives + + + + + | Type | Date Recorded | Patient | Explanation | | | | Clerical Grader | | + + + + + | Power of | | | | | Copyholder | | | | + + + + + | Advance | 12/25/2013 7:49 | | | | Directive | PM | | | + + + + +
--- OUTSIDE RECORDS SUMMARY | ~2019-05-26 | XMS | Encounter Summary ---
Demographics + + + | Address | [address] | | | [place] [address] | + + + | Home Phone | | + + + | Preferred Language | Unknown | + + + | Marital Status | Single | + + + | Scientology Affiliation | Unknown | + + + | Race | Unknown | + + + | Ethnic Group | Unknown | + + + Author + + + | Author | [facility] | | | and Mohsenana | + + + | Organization | [facility] | | | and Mohsenana [...] Team Providers + +------+ + | Care Inspector Health Care Facilities Name | Role | Phone | + +------+ + PCP | Unavailable | + +------+ + Encounter Details +--------+ + + + + | Date | Type | Department | Care Team | Description | +--------+ + + + + | 11/11/ | Hospital | [facility] | | | | 1995 | Encounter | [facility] | | | | | | CENTER [address] | | | | | | [place] | | | | | | [address] | | | | | | [phone] | | | +--------+ + + + [...]
--- OUTSIDE RECORDS SUMMARY | ~2019-05-26 | XMS | Clinical Summary ---
Demographics + + + | Address | [address] | | | [place] [address] | + + + | Home Phone | | + + + | Preferred Language | Unknown | + + + | Marital Status | | + + + | Rastafarian Affiliation | Unknown | + + + | Race | Unknown | + + + | Ethnic Group | Unknown | + + + Author + + + | Author | [facility] (Historical as of | | | 02-17-19) | + + + | Organization | [facility] (Historical as of | | | 02-17-19) | + + + | Address | Unknown | + + + | Phone | Unavailable | + + + Support + + +---------+ + | Name | Relationship | Address | Phone | + + +---------+ + | Alysa Ojeda | ECON | Unknown | | + + +---------+ + Care Team Providers + +------+ + | Care Help Aid Name | Role | Phone | + +------+ + | Sandeep Garza DO | PP | | + +------+ + Allergies No Known Allergies Current Medications + + +--------+---------+------+------+-------+ | Prescription | Sig. | Disp. | Refills | Star | End | Statu | | | | | | t | Date | s | | | | | | Date | | | + + +--------+---------+------+------+-------+ | metoprolol | Take 1 tablet by | 2 | 0 | 03/0 | | Activ | | (TOPROL-XL) 50 MG 24 | mouth daily. | tablet | | 6/20 | | e | | hr tablet | | | | 18 | | | + + +--------+---------+------+------+-------+ Active Problems + + + | Problem | Noted Date | + + + | Precordial pain [...] Alive | | + +------+--------+ + | Mother | | Alive | | + +------+--------+ + Social History + +-------+ +--------+------+ | Tobacco Use | Types | Packs/Day | Years | Date | | | | | Used | | + +-------+ +--------+------+ | Current Every Day | | 0.25 | | | | Smoker | | | | | + +-------+ +--------+------+ + +---+---+---+ | Smokeless Tobacco: | | | | | Never Used | | | | + +---+---+---+ + + +---------+ + | Alcohol Use | Drinks/We | oz/Week | Comments | | | ek | | | + + +---------+ + | No | | | | + + +---------+ + + + + | Sex Assigned at | Date Recorded | | | | + + + | Not on file | | + + + Last Filed Vital Signs + + + + | Vital Sign | Reading | Time Taken | + + + + | Blood Pressure | 114/55 | 09/09/2017 11:29 AM PST | + + + + | Pulse | 45 | 09/09/2017 11:29 AM PST | + + + + | Temperature | 36.8 C (98.3 F) | 09/09/2017 10:27 AM PST | + + + + | Respiratory Rate | 16 | 09/09/2017 11:28 AM PST | + + + + | Oxygen Saturation | 97% | 09/09/2017 10:12 AM PST | + + + + | Inhaled Oxygen | - | - | | Concentration | | | + + + + | Weight | 93.9 kg (207 lb) | 09/09/2017 10:27 AM PST | + + + + | Height | 177.8 cm (5' 10") | 09/09/2017 10:27 AM PST | + + + + | Body Mass Index | 29.7 | 09/09/2017 10:27 AM PST | + + + + Plan of Treatment [...] | | | | Pneumococcal 19-64 | 9 | | | | (PPSV23 only) Medium | | | | | Risk (1 of 1 - | | | | | PPSV23) | | | | + + + + + | Vaccine: Influenza | | | | | (#1) | 9 | | | + + + + + Results Not on filefrom Last 3 Months Insurance + +--------+ +------+-------+ + | Payer | Benefi | Subscriber | Type | Phone | Address | | | t Plan | ID | | | | | | / | | | | | | | Group | | | | | + +--------+ +------+-------+ + | [employer] | [employer] | [id number] | | | | | | HEALTH | | | | | | | PLAN | | | | | + +--------+ +------+-------+ + | MEDICAID | [employer] | [id number] | | | [phone] | | | [address] | | | | [place] | | | [place] | | | | [phone] | | | FACILITIES ENGINEERING MANAGER | | | | | + +--------+ +------+-------+ + + +--------+ +--------+ + + | Guarantor Name | Accoun | Relation to | Date | Phone | Billing Address | | | t Type | Patient | of | | | | | | | | | | + +--------+ +--------+ + + | GREGORIO OJEDA | Person | Self [birth year] Home: | [address] [place] [address] | | M | al/Dontae | | 1980 | [phone] | [place] | | | sammy | | | [phone] | [phone] | + +--------+ +--------+ + +
--- OUTSIDE RECORDS SUMMARY | ~2019-05-26 | XMS | Encounter Summary ---
Demographics + + + | Address | [address] | | | [place] [address] | + + + | Home Phone | | + + + | Preferred Language | Unknown | + + + | Marital Status | Single | + + + | Jehovah'S Witness Affiliation | Unknown | + + + | Race | Unknown | + + + | Ethnic Group | Unknown | + + + Author + + + | Author | [facility] | | | and Mohsenana | + + + | Organization | [facility] | | | and Mohsenana [...] Team Providers + +------+ + | Care Ex Assistant/Program Director Name | Role | Phone | + +------+ + | Sandeep Garza DO | PCP | | + +------+ + Encounter Details +--------+ + + + + | Date | Type | Department | Care Team | Description | +--------+ + + + + | 03/23/ | [facility] | [facility] | Derrick De Dios | Chest pain, | | 2017 | Encounter | MED CTR XRAY [address] | MD [address] | unspecified type; | | | | [place] | [place] | Cough | | | | [place] [address] | [place] [address] | | | | | [phone] | [phone] | | | | | | | [...] | + +--------+ + + + | CULTURE, | Routin | 03/23/2017 | Cough | Results for this | | RESPIRATORY, LOWER, | e | 11:17 AM | | procedure are in the | | SMEAR | | PDT | | results section. | + +--------+ + + + | XR CHEST PA AND | Routin | 03/23/2017 | Chest pain, | Results for this | | LATERAL | e | 8:43 AM | unspecified type | procedure are in the | | | | PDT | | results section. | + +--------+ + + + | MEDICAL CYTOLOGY | Routin | 03/23/2017 | | Results for this | | | e | 12:00 AM | | procedure are in the | | | | PDT | | results section. | + +--------+ + + + documented in this encounter Results Culture, Respiratory, Lower, Smear [...] wanted Cytology done, not a culture. | [facility] | | | - [facility]ATORY | + + + + + + + + | Performing | Address | City/State/Zipcode | Phone Number | | Organization | | | | + + + + + | [facility] | [address] | [place], [place] | [phone] | | [facility] | | [address] | | | - LABORATORY | | | | + + + + + XR Chest PA and Lateral (03/23/2017 8:43 AM PDT) + + | Specimen | + + | | + + + + + | Narrative | Performed At | + + + | XR CHEST PA AND LATERAL 03/23/2017 8:43 AM HISTORY: chest pain. | [facility] | | COMPARISON: None. Findings: Heart size is within normal | | | limits. Aorta is normal. Mediastinum is unremarkable. Central | | | pulmonary vasculature is normal. The bilateral lungs are clear with | | | no evidence for pleural effusion or pneumothorax. There are no acute | | | osseous abnormalities. IMPRESSION - No acute findings. | | | Dictated and Signed by: Alfonzo Sanchze MD Electronically signed: | | | 03/23/2017 8:49 AM | | + + + + + | Procedure Note | + + | Rao, Rad Results In - 03/23/2017 8:52 AM PDT XR CHEST PA AND LATERAL 03/23/2017 8:43 | | AMHISTORY: chest pain.COMPARISON: None.Findings:Heart size is within normal limits. | | Aorta is normal. Mediastinum isunremarkable. Central pulmonary vasculature is normal. | | The bilateral lungs areclear with no evidence for pleural effusion or pneumothorax. | | There are no acuteosseous abnormalities.IMPRESSION -No acute findings.Dictated and | | Signed by: Alfonzo Sanchez MD Electronically signed: 03/23/2017 8:49 AM | |Findings: | |Heart size is within normal limits. Aorta is normal. Mediastinum is | |unremarkable. Central pulmonary vasculature is normal. The bilateral lungs are | |clear with no evidence for pleural effusion or pneumothorax. There are no acute | |osseous abnormalities. | | | |IMPRESSION - | |No acute findings. | | | |Dictated and Signed by: Alfonzo Sanchez MD | | Electronically signed: 03/23/2017 8:49 AM | + + + +---------+ + + | Performing | Address | City/State/Zipcode | Phone Number | | Organization | | | | + +---------+ + + | [facility] | | | | + +---------+ + + Medical Cytology (03/23/2017 12:00 AM PDT) + + | Specimen | + + | | + + + + + | Narrative | Performed At | + + + | ORDERING PHYSICIAN: Derrick De Dios MD PATIENT NAME: MARIA E [facility] | | [place] RYAN GENDER: Citlalli : 1980 SPECIMEN(S): | [facility] | | A SPUTUM GROSS DESCRIPTION: 30 ML OF CLOUDY, COLORLESS FLUID | | | CLINICAL HISTORY: NO CLINICAL DATA PROVIDED LABORATORY | | | PREPARATIONS: 1 MONOLAYER, 1 CYTOLOGY CELL BLOCK CYTOLOGIC | | | INTERPRETATION: Sputum: Negative for malignant cells. DESCRIPTION: | | | Pigment containing macrophages confirm the adequacy of the specimen. | | | Normal cells from the upper respiratory tract and oral cavity are | | | present. Cytologic atypia is not identified. SPECIMEN ADEQUACY: | | | Satisfactory for Evaluation PERFORMING LABORATORY: Professional | | | interpretation was performed by [facility],[place] [address] | | | [place] [address] (Branch Specialist: Neo | | | Hilda Miranda; CLIA#: [id number]).9 Technical preparation was | | | performed by [facility], [address] [place], [place] [address] | | | [place] [address] (Branch Specialist: Ryan Farfan D.O.; IA#: | | | [id number]). Diagnostician: Mayra ALCARAZ ([facility]) | | | Autocad Designer Diagnostician: Neo Miranda MD Pathologist | | | Electronically Signed 03/25/2017 | | + + + + +---------+ + + | Performing | Address | City/State/Zipcode | Phone Number | | Organization | | | | + +---------+ + + | [facility] | | | | | [facility] | | | | + +---------+ + + documented in this encounter Visit Diagnoses + + | Diagnosis | + + | Chest pain, unspecified type | + + | Cough | + + documented in this encounter"
--- OUTSIDE RECORDS SUMMARY | ~2019-05-26 | XMS | Encounter Summary ---
Demographics + + + | Address | [address] | | | [place] [address] | + + + | Home Phone [...] + + + | Author | [facility] | | | and Mohsenana | + + + | Organization | [facility] | | | and Mohsenana [...] Team Providers + +------+ + | Care Rock Crushing Machine Operator Name | Role | Phone | + +------+ + | Sandeep Garza DO | PCP | | + +------+ + Reason for Referral Diagnostic/Screening (Routine) +--------+--------+ + + + + | Status | Reason | Specialty | Diagnoses / | Referred By | Referred To | | | | | Procedures | Contact | Contact | +--------+--------+ + + + + | Closed | | Radiology | Diagnoses | [place], | [address] | | | | | Pleurodynia | Derrick | [address] | | | | | Cough in | MD Negrito | [place], | | | | | adult | [address] | [place] [address] | | | | | Procedures | [address] | Phone: | | | | | CT Chest | [place], [place] | [phone] | | | | | High | [address] | Fax: | | | | | Resolution | Phone: | [phone] | | | | | WO Contrast | [phone] | | | | | | | Fax: | | | | | | | [phone] | | +--------+--------+ + + + + Reason for Visit Diagnostic/Screening (Routine) +--------+--------+ + + + + | Status | Reason | Specialty | Diagnoses / | Referred By | Referred To | | | | | Procedures | Contact | Contact | +--------+--------+ + + + + | Closed | | Radiology | Diagnoses | De Dios, | [address] | | | | | Pleurodynia | Derrick | [address] | | | | | Cough in | MD Negrito | [place], | | | | | adult | [address] | [place] [address] | | | | | Procedures | [address] | Phone: | | | | | CT Chest | [place], [place] | [phone] | | | | | High | [address] | Fax: | | | | | Resolution | Phone: | [phone] | | | | | WO Contrast | [phone] | | | | | | | Fax: | | | | | | | [phone] | | +--------+--------+ + + + + Encounter Details +--------+ + + + + | Date | Type | Department | Care Team | Description | +--------+ + + + + | 04/29/ | Hospital | [facility] | Derrick De Dios | Pleurodynia; | | 2016 | Encounter | MED CTR [address] | MD [address] | Cough in adult | | | | [place], | [place] | | | | | [place] [address] | [place] [address] | | | | | [phone] | [phone] | | | | | | | [...] + +--------+ + + + | CT CHEST HIGH | Routin | 04/29/2017 | Pleurodynia Cough | Results for this | | RESOLUTION WO | e | 9:15 AM | in adult | procedure are in the | | CONTRAST | | PDT | | results section. | + +--------+ + + + documented in this encounter Results CT Chest High Resolution WO Contrast (04/29/2017 9:15 AM PDT) + + | Specimen | + + | | + + + + + | Narrative | Performed At | + + + | UNENHANCED CHEST CT 04/29/2017 9:11 AM CLINICAL HISTORY: former | [facility] | | smoker with months of disabling chest discomfort with sputum | | | expectoration; cxr normal except for hyperinflation | | | COMPARISON: Radiographs March 23, 2017 and January 2014 | | | TECHNIQUE: Axial unenhanced images are performed through the chest, | | | along with multiplanar reformations. FINDINGS: Minimal residual | | | thymus is suggested in the anterior superior mediastinum. Early | | | coronary arterial calcification is questioned. The mediastinum | | | otherwise has an unremarkable unenhanced appearance. No pathologic | | | lymph node enlargement is visible. There is no pleural or | | | pericardial effusion or pneumothorax. Changes of paraseptal and | | | centrilobular emphysema are present. Mild, generalized bronchial | | | wall thickening is present, without airway occlusion. No | | | consolidation, mass or pulmonary nodule is evident. Minimal | | | dependent density is consistent with atelectasis. There is mild | | | bilateral gynecomastia. The bones, soft tissues and imaged upper | | | abdomen are otherwise unremarkable. IMPRESSION - 1. EMPHYSEMA | | | WITH MILD, GENERALIZED BRONCHIAL WALL THICKENING POTENTIALLY | | | REFLECTING CHRONIC BRONCHITIS. 2. POTENTIAL EARLY CORONARY | | | ARTERIAL CALCIFICATION. Dictated and Signed by: Cosmo Meza MD | | | Electronically signed: 04/29/2017 11:55 AM | | + + + + + | Procedure Note | + + | Rao, Rad Results In - 04/29/2017 11:58 AM PDT UNENHANCED CHEST CT 04/29/2017 9:11 AM | | | | CLINICAL HISTORY: former smoker with months of disabling chest discomfort with | | sputum expectoration; cxr normal except for hyperinflation | | | | COMPARISON: Radiographs March 23, 2017 and January 2014 | | | | TECHNIQUE: Axial unenhanced images are performed through the chest, along with | | multiplanar reformations. | | | | FINDINGS: Minimal residual thymus is suggested in the anterior superior | | mediastinum. Early coronary arterial calcification is questioned. The | | mediastinum otherwise has an unremarkable unenhanced appearance. No pathologic | | lymph node enlargement is visible. There is no pleural or pericardial effusion | | or pneumothorax. | | | | Changes of paraseptal and centrilobular emphysema are present. Mild, | | generalized bronchial wall thickening is present, without airway occlusion. No | | consolidation, mass or pulmonary nodule is evident. Minimal dependent density | | is consistent with atelectasis. | | | | There is mild bilateral gynecomastia. The bones, soft tissues and imaged upper | | abdomen are otherwise unremarkable. | | | | IMPRESSION - | | 1. EMPHYSEMA WITH MILD, GENERALIZED BRONCHIAL WALL THICKENING POTENTIALLY | | REFLECTING CHRONIC BRONCHITIS. | | | | 2. POTENTIAL EARLY CORONARY ARTERIAL CALCIFICATION. | | | | Dictated and Signed by: Cosmo Meza MD | | Electronically signed: 04/29/2017 11:55 AM | + + + +---------+ + + | Performing | Address | City/State/Zipcode | Phone Number | | Organization | | | | + +---------+ + + | [facility] | | | | + +---------+ + + documented in this encounter Visit Diagnoses + + | Diagnosis | + + | Pleurodynia Painful respiration | + + | Cough in adult | + + documented in this encounter
--- OUTSIDE RECORDS SUMMARY | ~2019-05-26 | XMS | Encounter Summary ---
Demographics + + + | Address | [address] | | | [place] [address] | + + + | Home Phone | | + + + | Preferred Language | Unknown | + + + | Marital Status | Single | + + + | Moravian Affiliation | Unknown | + + + | Race | Unknown | + + + | Ethnic Group | Unknown | + + + Author + + + | Author | [facility] | | | and Mohsenana | + + + | Organization | [facility] | | | and Mohsenana [...] Team Providers + +------+ + | Care Hollow Ware Maker Name | Role | Phone | + +------+ + | Sandeep Garza DO | PCP | | + +------+ + Encounter Details +--------+ + + + + | Date | Type | Department | Care Team | Description | +--------+ + + + + | 04/28/ | Orders Only | [facility] [place] | Peyton Obregon, | Pleurodynia; | | 2016 | | PULMONARY [address] | RN | Cough in adult | | | | [place], | | | | | | [place] [address] | | | | | | [phone] | | | +--------+ + + + [...] adult | + + documented in this encounter"
--- OUTSIDE RECORDS SUMMARY | ~2019-05-26 | XMS | Encounter Summary ---
Demographics + + + | Address | [address] | | | [place] [address] | + + + | Home Phone [...] | Author | [facility] | | | and Mohsenana | + + + | Organization | [facility] | | | and Mohsenana | [...] Team Providers + +------+ + | Care Applications Coordinator Name | Role | Phone | + [...] [address] | | | | | [place], | [place] | | | | | [place] [address] | [place] [address] | | | | | [phone] | [phone] | | | | | | | [...]
--- OUTSIDE RECORDS SUMMARY | ~2019-05-26 | XMS | Encounter Summary ---
Demographics + + + | Address | [address] | | | [place] [address] | + + + | Home Phone | | + + + | Preferred Language | Unknown | + + + | Marital Status | Single | + + + | Christian Affiliation | Unknown | + + + | Race | Unknown | + + + | Ethnic Group | Unknown | + + + Author + + + | Author | [facility] | | | and Mohsenana | + + + | Organization | [facility] | | | and [...] Team Providers + +------+ + | Care Classroom Aide Name | Role | Phone | + +------+ + | Sandeep Garza DO | PCP | | + +------+ + Encounter Details +--------+ + + + + | Date | Type | Department | Care Team | Description | +--------+ + + + + | 12/29/ | Orders Only | [facility] | Cj Garner, | | | 2017 | | CONVERSION 888 | MD [address] | | | | | [address] | [place] | | | | | [place] | [address] | | | | | [address] | | | | | | [phone] | | | +--------+ + + + [...] | + +--------+ + + + | ECHO INTERPRETATION | Routin | 12/29/2016 | | Results for this | | OF OUTSIDE FILMS | e | 11:31 AM | | procedure are in the | | | | PDT | | results section. | + +--------+ + + + documented in this encounter Results ECHO Interpretation of Outside Films (12/29/2016 11:31 AM PDT) + + | Specimen | + + | | + + + + + | Impressions | Performed At | + + + | 1. The left ventricle is normal in size, wall thickness and systolic | | | function EF 60-65%. 2. The RV is normal in size and function. 3. | | | Morphologically normal cardiac valves with normal transvalvular flow | | | pattern. 4. There is no pericardial effusion. | | + + + + + + | Narrative | Performed At | + + + | Patient Name: Gregorio Ojeda Date of : 1980 | | | Performing Physician: Cj | | | Patsy | | | | | | INDICATIONS Precordial pain CONCLUSIONS | | | 1. The left ventricle is normal in size, wall thickness and systolic | | | function EF 60-65%. 2. The RV is normal in size and function. 3. | | | Morphologically normal cardiac valves with normal transvalvular flow | | | pattern. 4. There is no pericardial effusion. FINDINGS -------- | | | ECG rhythm: Sinus rhythm. Study: A 2-dimensional transthoracic | | | echocardiogram with m-mode, spectral and color flow Doppler was | | | perfomed. Study: This was a technically adequate study. Left | | | Ventricle: Overall left ventricular systolic function is normal with, | | | an EF between 60 - 65 %. Left Ventricle: The left ventricle cavity | | | size is normal. Left Ventricle: Left ventricular wall thickness is | | | normal. Left Ventricle: No regional wall motion abnormalities. Left | | | Ventricle: The diastolic filling pattern is normal for the age of the | | | patient. Right Ventricle: The RV is normal in size and function. | | | Left Atrium: The left atrial size is normal. Right Atrium: The right | | | atrium is normal in size. Aortic Valve: The aortic valve is | | | trileaflet and appears structurally normal. Aortic Valve: There is no | | | evidence of aortic regurgitation. Aortic Valve: There is no evidence | | | of aortic stenosis. Mitral Valve: The mitral valve is normal. | | | Mitral Valve: There is trace mitral regurgitation. Tricuspid Valve: | | | The tricuspid valve appears structurally normal. Tricuspid Valve: | | | Trace to mild tricuspid regurgitation present. Tricuspid Valve: There | | | is no evidence of pulmonary hypertension. Tricuspid Valve: The right | | | ventricular systolic pressure (pulmonary artery systolic pressure), | | | as measured by Doppler, is 24.54mmHg. Pulmonic Valve: The pulmonic | | | valve is normal. Pulmonic Valve: Normal cardiac valves with normal | | | transvalvular flow pattern. Pericardium: There is no pericardial | | | effusion. Pericardium: No pleural effusion seen. IVC/Hepatic Veins: | | | The IVC is normal size (1.5-2.5cm) and collapses >50% with sniff, | | | consistent with central venous pressures of 5-10mmHg. Aorta: The | | | aortic root, ascending aorta and aortic arch are normal. | | | MEASUREMENTS Ao asc: 3.10 cm Ao Diam: 3.39 cm | | | Ao st junct: 2.86 cm IVC: 1.54 cm LA Diam: 3.91 cm LA | | | Major: 4.41 cm EDV(Teich): 106.43 ml IVSd: 0.82 cm LVIDd: | | | 4.77 cm LVPWd: 0.87 cm LVOT Area: 3.43 cm2 LVOT Diam: | | | 2.09 cm %FS: 35.75 % EF(Teich): 65.20 % ESV(Teich): 37.04 | | | ml LVIDs: 3.07 cm SV(Teich): 69.39 ml RA Major: 3.95 cm | | | RV Major: 6.53 cm RVIDd: 2.80 cm LVEF MOD A2C: 55.99 % SV | | | MOD A2C: 54.04 ml LVEF MOD A4C: 63.87 % SV MOD A4C: 65.39 | | | ml EF Biplane: 60.56 % LVEDV MOD BP: 98.87 ml LVESV MOD BP: | | | 38.99 ml LVEDV MOD A2C: 96.51 ml LVLd A2C: 8.84 cm LVEDV | | | MOD A4C: 102.38 ml LVLd A4C: 8.92 cm LVESV MOD A2C: 42.47 | | | ml LVLs A2C: 7.23 cm LVESV MOD A4C: 36.98 ml LVLs A4C: | | | 7.16 cm LAESV(A-L): 35.45 ml LAESV Index (A-L): 18.18 ml/m2 | | | LAAs A2C: 13.35 cm2 LAESV A-L A2C: 35.62 ml LALs A2C: 4.24 | | | cm LAAs A4C: 13.28 cm2 LAESV A-L A4C: 34.71 ml LALs A4C: | | | 4.31 cm RAAs: 10.91 cm2 RAESV A-L: 25.97 ml RAESV MOD: | | | 25.56 ml RALs: 3.89 cm TAPSE: 2.48 cm AV maxP.80 mmHg | | | AV meanP.15 mmHg AV Vmax: 0.97 m/s AV Vmean: 0.69 m/s | | | AV VTI: 17.53 cm RODOLFO Vmax: 3.26 cm2 RODOLFO (VTI): 3.25 cm2 | | | AVAI Vmax: 0.00 cm2/m2 AVAI (VTI): 0.00 cm2/m2 LVOT maxPG: | | | 3.43 mmHg LVOT meanP.85 mmHg LVSI Dopp: 29.24 ml/m2 LVSV | | | Dopp: 57.03 ml LVOT Vmax: 0.92 m/s LVOT Vmean: 0.63 m/s | | | LVOT VTI: 16.59 cm MV A Caleb: 0.48 m/s MV DecT: 205.80 ms | | | MV E Caleb: 0.56 m/s MV E/A Ratio: 1.16 MV PHT: 59.68 ms MVA | | | By PHT: 3.68 cm2 Septal e': 0.09 m/s Septal E/e': 6.23 | | | RAP: 5 mmHg RVSP: 24.53 mmHg TR maxP.53 mmHg TR Vmax: | | | 2.21 m/s Medical Appliance Maker: ANDREA Authenticated by: Cj Garner | | | Report Date/Time: 01-05-2017 06:45:04 | | + + + + + | Procedure Note | + + | Rao, Rad Conversion - 02/22/2019 8:10 PM PDT Patient Name: Lynette | | ShawnerDate of : 1980 Performing Physician: | | Cj | | Patsy INDICATIONS------ | | -----Precordial pain CONCLUSIONS 1. The left ventricle is normal in size, wall | | thickness and systolic function EF 60-65%.2. The RV is normal in size and function.3. | | Morphologically normal cardiac valves with normal transvalvular flow pattern.4. There is | | no pericardial effusion. FINDINGS--------ECG rhythm: Sinus rhythm.Study: A | | 2-dimensional transthoracic echocardiogram with m-mode, spectral and color flow Doppler | | was perfomed.Study: This was a technically adequate study.Left Ventricle: Overall left | | ventricular systolic function is normal with, an EF between 60 - 65 %.Left Ventricle: | | The left ventricle cavity size is normal.Left Ventricle: Left ventricular wall thickness | | is normal.Left Ventricle: No regional wall motion abnormalities.Left Ventricle: The | | diastolic filling pattern is normal for the age of the patient.Right Ventricle: The RV | | is normal in size and function.Left Atrium: The left atrial size is normal.Right Atrium: | | The right atrium is normal in size.Aortic Valve: The aortic valve is trileaflet and | | appears structurally normal.Aortic Valve: There is no evidence of aortic | | regurgitation.Aortic Valve: There is no evidence of aortic stenosis.Mitral Valve: The | | mitral valve is normal.Mitral Valve: There is trace mitral regurgitation.Tricuspid | | Valve: The tricuspid valve appears structurally normal.Tricuspid Valve: Trace to mild | | tricuspid regurgitation present.Tricuspid Valve: There is no evidence of pulmonary | | hypertension.Tricuspid Valve: The right ventricular systolic pressure (pulmonary artery | | systolic pressure), as measured by Doppler, is 24.54mmHg.Pulmonic Valve: The pulmonic | | valve is normal.Pulmonic Valve: Normal cardiac valves with normal transvalvular flow | | pattern.Pericardium: There is no pericardial effusion.Pericardium: No pleural effusion | | seen.IVC/Hepatic Veins: The IVC is normal size (1.5-2.5cm) and collapses >50% with | | sniff, consistent with central venous pressures of 5-10mmHg.Aorta: The aortic root, | | ascending aorta and aortic arch are normal. MEASUREMENTS Ao asc: 3.10 cmAo | | Diam: 3.[address] junct: 2.86 cmIVC: 1.54 cmLA Diam: 3.91 cmLA Major: 4.41 | | cmEDV(Teich): 106.43 mlIVSd: 0.82 cmLVIDd: 4.77 cmLVPWd: 0.87 cmLVOT Area: | | 3.43 [id number] Diam: 2.09 cm%FS: 35.75 %EF(Teich): 65.20 %ESV(Teich): 37.04 | | mlLVIDs: 3.07 cmSV(Teich): 69.39 mlRA Major: 3.95 cmRV Major: 6.53 cmRVIDd: | | 2.80 cmLVEF MOD A2C: 55.99 %SV MOD A2C: 54.04 mlLVEF MOD A4C: 63.87 %SV MOD A4C: | | 65.39 mlEF Biplane: 60.56 %LVEDV MOD BP: 98.87 mlLVESV MOD BP: 38.99 mlLVEDV MOD | | A2C: 96.51 mlLVLd A2C: 8.84 cmLVEDV MOD A4C: 102.38 mlLVLd A4C: 8.92 cmLVESV MOD | | A2C: 42.47 mlLVLs A2C: 7.23 cmLVESV MOD A4C: 36.98 mlLVLs A4C: 7.16 | | cmLAESV(A-L): 35.45 mlLAESV Index (A-L): 18.18 ml/m2LAAs A2C: 13.35 [id number] A-L | | A2C: 35.62 mlLALs A2C: 4.24 cmLAAs A4C: 13.28 [id number] A-L A4C: 34.71 mlLALs | | A4C: 4.31 cmRAAs: 10.91 [id number] A-L: 25.97 mlRAESV MOD: 25.56 mlRALs: 3.89 | | cmTAPSE: 2.48 cmAV maxP.80 mmHgAV meanP.15 mmHgAV Vmax: 0.97 m/Josesito | | Vmean: 0.69 m/Josesito VTI: 17.53 cmAVA Vmax: 3.26 cm2AVA (VTI): 3.25 [id number] Vmax: | | 0.00 cm2/m2AVAI (VTI): 0.00 cm2/m2LVOT maxP.43 mmHgLVOT meanP.85 mmHgLVSI | | Dopp: 29.24 ml/m2LVSV Dopp: 57.03 mlLVOT Vmax: 0.92 m/sLVOT Vmean: 0.63 m/sLVOT | | VTI: 16.59 cmMV A Caleb: 0.48 m/sMV DecT: 205.80 msMV E Caleb: 0.56 m/sMV E/A | | Ratio: 1.16MV PHT: 59.68 msMVA By PHT: 3.68 [id number] e': 0.09 m/sSeptal E/e': | | 6.23RAP: 5 mmHgRVSP: 24.53 mmHgTR maxP.53 mmHgTR Vmax: 2.21 m/s | | Medical Appliance Maker: DHAuthenticated by: Cj Shepherd Date/Time: 01-05-2017 06:45:04 | | IMPRESSION: 1. The left ventricle is normal in size, wall thickness and systolic | | function EF 60-65%.2. The RV is normal in size and function.3. Morphologically normal | | cardiac valves with normal transvalvular flow pattern.4. There is no pericardial | | effusion. | |Ao Diam: 3.39 cm | |Ao st junct: 2.86 cm | |IVC: 1.54 cm | |LA Diam: 3.91 cm | |LA Major: 4.41 cm | |EDV(Teich): 106.43 ml | |IVSd: 0.82 cm | |LVIDd: 4.77 cm | |LVPWd: 0.87 cm | |LVOT Area: 3.43 cm2 | |LVOT Diam: 2.09 cm | |%FS: 35.75 % | |EF(Teich): 65.20 % | |ESV(Teich): 37.04 ml | |LVIDs: 3.07 cm | |SV(Teich): 69.39 ml | |RA Major: 3.95 cm | |RV Major: 6.53 cm | |RVIDd: 2.80 cm | |LVEF MOD A2C: 55.99 % | |SV MOD A2C: 54.04 ml | |LVEF MOD A4C: 63.87 % | |SV MOD A4C: 65.39 ml | |EF Biplane: 60.56 % | |LVEDV MOD BP: 98.87 ml | |LVESV MOD BP: 38.99 ml | |LVEDV MOD A2C: 96.51 ml | |LVLd A2C: 8.84 cm | |LVEDV MOD A4C: 102.38 ml | |LVLd A4C: 8.92 cm | |LVESV MOD A2C: 42.47 ml | |LVLs A2C: 7.23 cm | |LVESV MOD A4C: 36.98 ml | |LVLs A4C: 7.16 cm | |LAESV(A-L): 35.45 ml | |LAESV Index (A-L): 18.18 ml/m2 | |LAAs A2C: 13.35 cm2 | |LAESV A-L A2C: 35.62 ml | |LALs A2C: 4.24 cm | |LAAs A4C: 13.28 cm2 | |LAESV A-L A4C: 34.71 ml | |LALs A4C: 4.31 cm | |RAAs: 10.91 cm2 | |RAESV A-L: 25.97 ml | |RAESV MOD: 25.56 ml | |RALs: 3.89 cm | |TAPSE: 2.48 cm | |AV maxP.80 mmHg | |AV meanP.15 mmHg | |AV Vmax: 0.97 m/s | |AV Vmean: 0.69 m/s | |AV VTI: 17.53 cm | |RODOLFO Vmax: 3.26 cm2 | |RODOLFO (VTI): 3.25 cm2 | |AVAI Vmax: 0.00 cm2/m2 | |AVAI (VTI): 0.00 cm2/m2 | |LVOT maxP.43 mmHg | |LVOT meanP.85 mmHg | |LVSI Dopp: 29.24 ml/m2 | |LVSV Dopp: 57.03 ml | |LVOT Vmax: 0.92 m/s | |LVOT Vmean: 0.63 m/s | |LVOT VTI: 16.59 cm | |MV A Caleb: 0.48 m/s | |MV DecT: 205.80 ms | |MV E Caleb: 0.56 m/s | |MV E/A Ratio: 1.16 | |MV PHT: 59.68 ms | |MVA By PHT: 3.68 cm2 | |Septal e': 0.09 m/s | |Septal E/e': 6.23 | |RAP: 5 mmHg | |RVSP: 24.53 mmHg | |TR maxP.53 mmHg | |TR Vmax: 2.21 m/s | | | |Medical Appliance Maker: ANDREA | |Authenticated by: Cj Garner | |Report Date/Time: 01-05-2017 06:45:04 | | | |IMPRESSION: | |1. The left ventricle is normal in size, wall thickness and systolic function EF 60-65%. | |2. The RV is normal in size and function. | |3. Morphologically normal cardiac valves with normal transvalvular flow pattern. | |4. There is no pericardial effusion. | + + documented in this encounter Visit Diagnoses Not on filedocumented in this encounter"
--- OUTSIDE RECORDS SUMMARY | ~2019-05-26 | XMS | Encounter Summary ---
Demographics + + + | Address | [address] | | | [place] [address] | + + + | Home Phone | | + + + | Preferred Language | Unknown | + + + | Marital Status | Single | + + + | Worship Affiliation | Unknown | + + + | Race | Unknown | + + + | Ethnic Group | Unknown | + + + Author + + + | Author | [facility] | | | and Mohsenana | + + + | Organization | [facility] | | | and Mohsenana | [...] Team Providers + +------+ + | Care Wharf Builder Name | Role | Phone | + +------+ + | Sandeep Garza DO | PCP | | + +------+ + Encounter Details +--------+ + + + + | Date | Type | Department | Care Team | Description | +--------+ + + + + | 03/23/ | [facility] | [facility] | Derrick De Dios | Chest pain, | | 2017 | Encounter | MED CTR XRAY [address] | MD [address] | unspecified type; | | | | [place] | [place] | Cough | | | | [place] [address] | [place] [address] | | | | | [phone] | [phone] | | | | | | | [...] + | [address] | [address] | [place], [place] | [phone] | | [facility] | | [address] | | | - LABORATORY | | [...] | | Dictated and Signed by: Alfonzo Sanchez MD Electronically signed: | | | 03/23/2017 [...] De Dios MD PATIENT NAME: [facility] | | [place] RYAN GENDER: Citlalli [...] | | | interpretation was performed by [facility],[place] [address] | | | [place] [address] (Orthodontist Assistant: Neo | | | Hilda Miranda; CLIA#: [id number]).9 Technical preparation was | | | performed by [facility], [address] [place], [place] [address] | | | [place] [address] (Orthodontist Assistant: Ryan Farfan D.O.; IA#: | | | [id number]). Diagnostician: Mayra ALCARAZ ([facility]) | | | Hide Salter Diagnostician: Neo Miranda MD Pathologist | | [...]
--- OUTSIDE RECORDS SUMMARY | ~2019-05-26 | XMS | Encounter Summary ---
Demographics + + + | Address | [address] | | | [place] [address] | + + + | Home Phone | | + + + | Preferred Language | Unknown | + + + | Marital Status | Single | + + + | Rastafarian Affiliation | Unknown | + + + | Race | Unknown | + + + | Ethnic Group | Unknown | + + + Author + + + | Author | [facility] | | | and Mohsenana | + + + | Organization | [facility] | | | and [...] Team Providers + +------+ + | Care Chain Person Name | Role | Phone | + +------+ + | Sandeep Garza DO | PCP | | + +------+ + Reason for Visit + + + | Reason | Comments | + + + | Pulmonary Disease | 5 wk follow up | | Appointment | | + + + Evaluate & Treat (Routine) +--------+--------+ + + + + | Status | Reason | Specialty | Diagnoses / | Referred By | Referred To | | | | | Procedures | Contact | Contact | +--------+--------+ + + + + | Closed | | Pulmonology | Diagnoses | [place], | [place], | | | | | lung | Sandeep Naranjo DO | Derrick | | | | | [place], | [id number] | MD [address] | | | | | chest all | [address] | [address] | | | | | pain | [address] | [place] | | | | | | [address] | [place] | | | | | | [place] | [address] Phone: | | | | | | [address] | [phone] | | | | | | Phone: | Fax: | | | | | | [phone] | [phone] | | | | | | Fax: | | | | | | | [phone] | | +--------+--------+ + + + + Encounter Details +--------+---------+ + + + | Date | Type | Department | Care Team | Description | +--------+---------+ + + + | 04/29/ | Office | [facility] [place] | Derrick De Dios | Mild emphysema (HCC) | | 2017 | Visit | PULMONARY [address] | MD [address] | (Primary Dx); | | | | [place], | [place] | Decreased diffusion | | | | [place] [address] | [place] [address] | capacity of lung; | | | | [phone] | [phone] | Pleurodynia | | | | | | | +--------+---------+ + + + Social History + + [...] + + + | Blood Pressure | 130/80 | 04/29/2017 8:33 AM | | | | | PDT | | + + + + + | Pulse | 70 | 04/29/2017 8:33 AM | | | | | PDT | | + + + + + | Temperature | 36.7 C (98.1 F) | 04/29/2017 8:33 AM | | | | | PDT | | + + + + + | Respiratory Rate | - | - | | + + + + + | Oxygen Saturation | 97% | 04/29/2017 8:33 AM | | | | | PDT | | + + + + + | Inhaled Oxygen | - | - | | | Concentration | | | | + + + + + | Weight | 90.2 kg (198 lb 12.8 | 04/29/2017 8:33 AM | | | | oz) | PDT | | + + + + + | Height | 175.3 cm (5' 9") | 04/29/2017 8:33 AM | | | | | PDT | | + + + + + | Body Mass Index | 29.36 | 04/29/2017 8:33 AM | | | | | PDT | | + + + + + documented in this encounter Progress Notes Derrick De Dios MD - 04/29/2017 10:20 AM [id number] much decreased smoker who m I saw 5 weeks ago complaining of pleurodynia. He smoked between 17 and 24 years, beginning age 14 5 weeks ago he told me it was 1 cigaret te a day; today he says it's 1 cigarette per week. I did testing on him. I did cytology to look for abnormal cells; he had pigmented macrophages consistent with smoking but otherwise normal. I did high-resolution CT scan of the chest which is not formally read but I have r eviewed it and to me it shows mild central lobular emphysema, somewhat remarkable for age 37 , but not if he has 23 years of cigarettes. We did's barometer treat today, lung volumes, a nd diffusion capacity. Spirometry showed normal values. FEV1 3.44, 83% of predicted. For ed vital capacity of 4.8, 93%, for ratio of 72%, normal, but on the borderline of consistent with obstruction. Lung volumes were normal, with total lung capacity 7.21, 108% of predict ed. Residual volume was increased at 134% of predicted and residual volume divided by TLC w as slightly increased at 124% of predicted, 32% overall. This is consistent with his chest x-ray, and very mild emphysema. Diffusion capacity was reduced, 23.6, 62% of predicted. No rmal would be more than 70%. His transfer factor was 92% of predicted, suggesting he may ferrell ve more emphysema then the chest CT scan suggests. Physical exam: He's here with his 4-year-old son, lean and in no distress. Weight 199, blo od pressure 130/80, pulse 70, respirations 16, temperature 98.1, oxygen saturation 97%. ANASTASIYA NT: Conjunctiva are pink. The oropharynx is normal. The neck is normal. The lung del real i nitially showed wheeze on the right posterior with forced exhalation but not afterward. Car diac rhythm is regular with no murmur or gallop. The abdomen is soft and nontender. There is no edema. Laboratory evaluation: See above Impression and suggestions: 1. Mild emphysema: I told him he is susceptible to cigarette smoke and he should absolutel y quit and he says he will. I told him pupils lung function improves and does not improve b megond 6 months after quitting, but many people find remarkable improvement before that point . He insisted he is going to quit. If he develops dyspnea or wheezing associated with some severe viral infection or allergic or heavy forest fire smoke exposure, a drug like albuterol or Combivent for when necessary u se could be helpful for him. If he truly quits, he should not need to use such a drug excep t episodically. 2. Reduced diffusion capacity: I told him that the small reduction would not get in the wa y of any future activity or a prolonged life, was due to the cigarettes, and would be expect ed to worsen if he continues to smoke. 3. Pleurodynia: He did not express any concern about this today. I told him sometimes we cannot identify a cause of discomfort, but we believe the patient, and we can tell them it i s not a threat to their health. I told him that is the case with his chest pain. He was satisfied with this. We spent 15 minutes, at least half in counseling. Word proces sing was used and I apologize for uncorrected mistakes. Derrick De Dios M.D. 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
--- OUTSIDE RECORDS SUMMARY | ~2019-05-26 | XMS | Clinical Summary ---
Demographics + + + | Address | [address] | | | [place] [address] | + + + | Home Phone | | + + + | Preferred Language | Unknown | + + + | Marital Status | | + + + | Cheondoism Affiliation | Unknown | + + + | Race | Unknown | + + + | Ethnic Group | Unknown | + + + Author + + + | Author | [facility] (Historical as of | | | 02-17-19) | + + + | Organization | [facility] (Historical as of | | | 02-17-19) [...] Team Providers + +------+ + | Care Practicing Dermatologist Name | Role | Phone | + [...] | [employer] | ODS | [id number] | | | | | | HEALTH | | | | | | | PLAN | | | | | + +--------+ +------+-------+ + | MEDICAID | [place] | [id number] | | | [address] | | | [address] | | | | [place] | | | [place] | | | | [address] | | | [employer] | | | | | + +--------+ [...] | Self [birth year] Home: | [address] [place] [address] | | M | al/Dontae | | 1980 | [phone] [place] | | | sammy | | | [phone] | [phone] | + +--------+ +--------+ + +
--- OUTSIDE RECORDS SUMMARY | ~2019-05-26 | XMS | Encounter Summary ---
Demographics + + + | Address | [address] | | | [place] [address] | + + + | Home Phone | | + + + | Preferred Language | Unknown | + + + | Marital Status | Single | + + + | Buddhism Affiliation | Unknown | + + + | Race | Unknown | + + + | Ethnic Group | Unknown | + + + Author + + + | Author | [facility] | | | and Mohsenana | + + + | Organization | [facility] | | | and Mohsenana | [...] Team Providers + +------+ + | Care Rf Engineer Name | Role | Phone | + +------+ + PCP | Unavailable | + +------+ + Encounter Details +--------+ + + + + | Date | Type | Department | Care Team | Description | +--------+ + + + + | 11/11/ | Hospital | [facility] | | | | 1995 | Encounter | MED CTR GENERIC PSY | | | | | | CONV DEPT [address] | | | | | | [place], | | | | | | [place] [address] | | | | | | [phone] | | | +--------+ + + + [...]
--- OUTSIDE RECORDS SUMMARY | ~2019-05-26 | XMS | Encounter Summary ---
Demographics + + + | Address | [address] | | | [place] [address] | + + + | Home Phone | | + + + | Preferred Language | Unknown | + + + | Marital Status | Single | + + + | Orthodox Affiliation | Unknown | + + + | Race | Unknown | + + + | Ethnic Group | Unknown | + + + Author + + + | Author | [facility] | | | and Mohsenana | + + + | Organization | [facility] | | | and Mohsenana [...] Team Providers + +------+ + | Care Water Pump Assembler Name | Role | Phone | + +------+ + PCP | Unavailable | + +------+ + Encounter Details +--------+ + + + + | Date | Type | Department | Care Team | Description | +--------+ + + + + | 06/23/ | Hospital | [facility] | | | | 1993 | Encounter | MED CTR EMERGENCY | | | | | | CENTER [address] | | | | | | [place] | | | | | | [address] | | | | | | [phone] | | | +--------+ + + + [...]
--- OUTSIDE RECORDS SUMMARY | ~2019-05-26 | XMS | Encounter Summary ---
Demographics + + + | Address | [address] | | | [place] [address] | + + + | Home Phone | | + + + | Preferred Language | Unknown | + + + | Marital Status | Single | + + + | Mormon Affiliation | Unknown | + + + | Race | Unknown | + + + | Ethnic Group | Unknown | + + + Author + + + | Author | [facility] | | | and Mohsenana | + + + | Organization | [facility] | | | and Mohsenana [...] Team Providers + +------+ + | Care Air Cargo Specialist Supervisor Name | Role | Phone | + +------+ + PCP | Unavailable | + +------+ + Encounter Details +--------+ + + + + | Date | Type | Department | Care Team | Description | +--------+ + + + + | 11/11/ | Hospital | [facility] | | | | 1995 | Encounter | [facility] | | | | | | CENTER [address] | | | | | | [place] | | | | | | [address] | | | | | | [phone] | | | +--------+ + + + [...]
--- OUTSIDE RECORDS SUMMARY | ~2019-05-26 | XMS | Encounter Summary ---
Demographics + + + | Address | [address] | | | [place] [address] | + + + | Home Phone | | + + + | Preferred Language | Unknown | + + + | Marital Status | Single | + + + | Restorationist Affiliation | Unknown | + + + | Race | Unknown | + + + | Ethnic Group | Unknown | + + + Author + + + | Author | [facility] | | | and Mohsenana | + + + | Organization | [facility] | | | and Mohsenana [...] Team Providers + +------+ + | Care Nuclear Medicine Technician Name | Role | Phone | + [...] | | Pleurodynia | Derrick | [address] | | | | | Cough in | MD Negr[place] | [place], | | | | | adult | [address] | [place] [address] | | | | | Procedures | [address] | Phone: | | | | | CT Chest | [place] | [phone] | | | | | High | [address] | Fax: | | | | | Resolution | Phone: | [phone] | | | | | WO Contrast | [phone] | | | | | | | Fax: | | | | | | | [phone] | | +--------+--------+ + + + + Reason for Visit + + + | Reason | Comments | + + + | Pulmonary Disease | Consult | | Appointment | | + + + Evaluate & Treat (Routine) +--------+--------+ + + + + | Status | Reason | Specialty | Diagnoses / | Referred By | Referred To | | | | | Procedures | Contact | Contact | +--------+--------+ + + + + | Closed | | Pulmonology | Diagnoses | Greg, Jo Ann De Dios | | | | | lung | Sandeep Naranjo DO | [place]rick | | | | | issues, | [address] | MD [address] | | | | | chest all | [address] | [address] | | | | | pain | [address] | [place] | | | | | | [address] | [place] | | | | | | [place] | [address] Phone: | | | | | | [address] | [phone] | | | | | | Phone: | Fax: | | | | | | [phone] | [phone] | | | | | | Fax: | | | | | | | [phone] | | +--------+--------+ + + + + Encounter Details +--------+---------+ + + + | Date | Type | Department | Care Team | Description | +--------+---------+ + + + | 03/23/ | Office | [facility] | Derrick De Dios | Pleurodynia (Primary | | 2017 | Visit | PULMONARY [address] | [address] | Dx); Cough in | | | | [address] [place], | [place] | adult; Cigarette | | | | [place] [address] | [place] [address] | nicotine dependence | | | | [phone] | [phone] | without complication | | | | | | | [...] No; Counseling Given: No | | Comments: 03/23/17: Sometimes just one cig/day [...] + + + | Blood Pressure | 120/80 | 03/23/2017 9:33 AM | | | | | PDT | | + + + + + | Pulse | 92 | 03/23/2017 9:33 AM | | | | | PDT | | + + + + + | Temperature | 36.8 C (98.3 F) | 03/23/2017 9:33 AM | | | | | PDT | | + + + + + | Respiratory Rate | - | - | | + + + + + | Oxygen Saturation | 98% | 03/23/2017 9:33 AM | | | | | PDT | | + + + + + | Inhaled Oxygen | - | - | | | Concentration | | | | + + + + + | Weight | 86.2 kg (190 lb 1.6 | 03/23/2017 9:33 AM | | | | oz) | PDT | | + + + + + | Height | 175.3 cm (5' 9") | 03/23/2017 9:33 AM | | | | | PDT | | + + + + + | Body Mass Index | 28.07 | 03/23/2017 9:33 AM | | | | | PDT | | + + + + + documented in this encounter Plan of Treatment + +------+--------+ + + | Name | Type | Priori | Associated Diagnoses | Order Schedule | | | | ty | | | + +------+--------+ + + | Pulmonary function | PFT | NASREEN | Pleurodynia Cough | 1 Occurrences | | test | | | In Adult | starting 03/23/2017 | | | | | | until 03/23/2018 | + +------+--------+ + + | CBC with | Lab | Routin | Pleurodynia | 1 Occurrences | | Differential | | e | | starting 03/23/2017 | | | | | | until 03/23/2018 | + +------+--------+ + + | Comprehensive | Lab | Routin | Pleurodynia | 1 Occurrences | | Metabolic Panel | | e | | starting 03/23/2017 | | | | | | until 03/23/2018 | + +------+--------+ + + documented as of this encounter Results CT Chest High Resolution [...] | Diagnosis | + + | Pleurodynia - Primary Painful respiration | + + | Cough in adult | + + | Cigarette nicotine dependence without complication Tobacco use disorder | + + documented in this encounter
--- OUTSIDE RECORDS SUMMARY | ~2019-05-26 | XMS | Encounter Summary ---
Demographics + + + | Address | [address] | | | [place] [address] | + + + | Home Phone | | + + + | Preferred Language | Unknown | + + + | Marital Status | Single | + + + | Religion Affiliation | Unknown | + + + | Race | Unknown | + + + | Ethnic Group | Unknown | + + + Author + + + | Author | [facility] | | | and Mohsenana | + + + | Organization | [facility] | | | [...] Team Providers + +------+ + | Care Audiology Director Name | Role | Phone | + +------+ + PCP | Unavailable | + +------+ + Encounter Details +--------+ + + + + | Date | Type | Department | Care Team | Description | +--------+ + + + + | 11/11/ | Hospital | [facility] | | | | 1995 | Encounter | MED CTR GENERIC PSY | | | | | | CONV DEPT [address] | | | | | | [place], | | | | | | [place] [address] | | | | | | [phone] | | | +--------+ + + + [...]
--- OUTSIDE RECORDS SUMMARY | ~2019-05-26 | XMS | Encounter Summary ---
Demographics + + + | Address | [address] | | | [place] [address] | + + + | Home Phone | | + + + | Preferred Language | Unknown | + + + | Marital Status | Single | + + + | Adventist Affiliation | Unknown | + + + | Race | Unknown | + + + | Ethnic Group | Unknown | + + + Author + + + | Author | [facility] | | | and Mohsenana | + + + | Organization | [facility] | | | and Mohsenana [...] Team Providers + +------+ + | Care Supervisor Microwave Name | Role | Phone | + [...] | Emergency | [facility] | [place], | Headache (Primary | | 2013 | | [facility] | Padilla Mederos MD [address] | Dx); Acute confusion | | | | CENTER [address] | [address] [address] [place] | | | | | [place], [place] | [place] [address] | | | | | [address] | [phone] | | | | | [phone] | | | +--------+ + + + [...] free to contact our hospital care managers ([phone]) for assistance. [facility] Internal Medicine or Family Medicine [address] [place] [address] Ren[place] Jackson. [phone] [place] [facility] [address] [facility] [phone] [facility] Check with [facility] about state assistance programs. [address] [facility] [phone] [facility] (will not fill narcotic medications) [address] [phone] Tuesday 3 PM to 5 PM Tuesday 3 PM 5 PM Q-Layer [address] [phone] documented in this encounter Plan of Treatment [...] + | MISCELLANEOUS LAB | | | [phone] | + +---------+ + + | MISCELANIOUS LAB | | | [phone] | + +---------+ + + Basic Metabolic [...] | mL/min/1.73m2 | [facility] | | | FRENCH | RATE,ESTIMATED | | MEDICAL | | | | mL/min/1.62k5Esxt than | | CENTER - | | [...] + | [facility] | [address] | [place] | [phone] | | [facility] | | [address] | | | - LABORATORY | | | | + + + + + | [facility] | [address] | [place], [place] | | | [facility] | | [address] | | | - LABORATORY | | [...] | | | | | | [facility] | | | | | | MEDICAL [...] [address] | [place] | [phone] | | [facility] | | [address] | | | - LABORATORY | | | | + + + + + | [facility] | [address] | [place] | | | [facility] | | [address] | | | - LABORATORY | | | | + + + + + documented in this encounter Visit Diagnoses + + | Diagnosis | + + | Headache - Primary | + + | Acute confusion Delirium due to conditions classified elsewhere | + + documented in this encounter
--- OUTSIDE RECORDS SUMMARY | ~2019-05-26 | XMS | Encounter Summary ---
Demographics + + + | Address | [address] | | | [place] [address] | + + + | Home Phone | | + + + | Preferred Language | Unknown | + + + | Marital Status | Single | + + + | Jewish Affiliation | Unknown | + + + | Race | Unknown | + + + | Ethnic Group | Unknown | + + + Author + + + | Author | [facility] | | | and Mohsenana | + + + | Organization | [facility] | | | and Mohsenana [...] Team Providers + +------+ + | Care Straddle Bug Driver Name | Role | Phone | + +------+ + | Sandeep Garza DO | PCP | | + +------+ + Encounter Details +--------+ + + + + | Date | Type | Department | Care Team | Description | +--------+ + + + + | 09/09/ | Hospital | [facility] | Conversion | Precordial pain | | 2018 | Encounter | [facility] | Transaction, | | | | | [address] | Provider Unknown | | | | | [place], [place] | [phone] | | | | | [address] | | | | | | [phone] | Cj Garner, | | | | | | MD [address] | | | | | | [place] | | | | | | [address] | | | | | | | [...] + + + | Oxygen Saturation | - | - | | + [...] + + + documented in this encounter Medications at Time of Discharge + + + +---------+ + + | Medication | Sig | Dispensed | Refills | Start | End Date | | | | | | Date | | + + + +---------+ + + | metoprolol | Take 1 tablet by | | 0 | 09/07/19 | | | succinate | mouth daily. | | | 18 | | | (TOPROL-XL) 50 mg 24 | | | | | | | hr tablet | | | | | | + + + +---------+ + + documented as of this encounter Progress Notes Conversion Transaction, Provider Unknown - 09/09/2017 11:41 AM PSTFormatting of this note m ight be different from the original. Nurse Progress Note by Daphnie Umana RN at 09/09/17 114 Author: Daphnie Umana RN Service: Emergency Department Author Type: Registered Nurse Filed: 09/09/17 114 Date of Service: 09/09/171140 Status: Signed Nurse Practitioner Per Diem: Daphnie Umana RN (Registered Nurse) Procedure complete. Pt dane very well. Iv dc'd catheter intact. Pt discharged home ambula tory. c/o mild headache from ntg but otherwise unremarkable. docume nted in this encounter Plan of Treatment Not on filedocumented as of this encounter Procedures + +--------+ + + + | Procedure Name | Priori | Date/Time | Associated Diagnosis | Comments | | | ty | | | | + +--------+ + + + | CT ANGIOGRAPHY | Routin | 09/09/2017 | | Results for this | | CORONARY ARTERIES W | e | 11:51 AM | | procedure are in the | | CONTRAST W 3D | | PST | | results section. | + +--------+ + + + documented in this encounter Results CT Angiogram Coronary Arteries w Cont 3D (09/09/2017 11:51 AM PST) + + | Specimen | + + | | + + + + + | Impressions | Performed At | + + + | 1. Patent epicardial coronary arteries without stenosis. 2. | | | Right coronary artery dominance. 3. Pulmonary emphysema. 4. | | | Small right upper lobe pulmonary nodule measuring 3 x 2 mm, | | | nonspecific. Given presence of pulmonary emphysema, recommend | | | attention on follow-up low dose chest CT scan in 12 months. 5. | | | Small pericardial effusion. | | + + + + + + | Narrative | Performed At | + + + | [facility] CTA CORONARY W CONTRAST 09/09/2017 11:16 AM | | | HISTORY: 37 years. Male. Chest pain. Evaluate for coronary | | | artery disease. TECHNIQUE: Patient arrived in the department with | | | a resting heart rate of bpm and blood pressure of in normal sinus | | | rhythm. Coronary CTA then obtained during intravenous administration | | | of 125 mL IsoVue 370 contrast. Axial 0.6-mm images were obtained | | | utilizing prospective gating at 70% of the cardiac cycle. Images | | | were obtained after premedication with sequential doses of metoprolol | | | tartrate IV to a total dose of mg IV metoprolol. A single 0.4 mg | | | sublingual nitroglycerin spray was given immediately before | | | scanning. Additional reconstructed full field images of the chest | | | were utilized for noncardiac soft tissue evaluation. 3D image | | | reconstruction of the coronary arteries were performed on a [employer] | | | software platform. Dose reduction techniques were used including | | | automated exposure control (AEC), iterative reconstruction technique, | | | and/or mA and/or kV dose adjustments based on patient size. | | | COMPARISON: None. FINDINGS: CORONARY ARTERIES: There is good | | | visualization of the left main, LAD, circumflex, and right coronary | | | artery. The patient is right dominant. Left Main: No calcified or | | | soft plaque identified. LAD: No calcified or soft plaque identified. | | | Ramus intermedius: Small small ramus intermedius, patent. | | | Circumflex: No calcified or soft plaque identified. RCA: No calcified | | | or soft plaque identified. ADDITIONAL FINDINGS: Normal cardiac | | | size. Small pericardial effusion. No filling defects within the heart. | | | Left-sided 3 vessel aortic arch. No enlarged mediastinal lymph | | | nodes. Scattered small mediastinal lymph nodes, nonspecific. The index | | | lymph node measuring 8 x 4 mm, image 46/series 7. The index | | | prevascular lymph node measuring 1.4 x 0.4 cm, image 79/series 7. | | | Normal thoracic esophagus. Pulmonary arteries are normal in | | | caliber. No evidence of pulmonary embolism in visualized coronary | | | arteries. Mild pulmonary emphysema. Diffuse bronchial wall | | | thickening. Small right upper lobe pulmonary nodule measuring 3 x 2 | | | mm, image 96/series 7. Normal visualized portion of abdomen. | | | Accessory or replaced left hepatic artery. No acute osseous | | | abnormality. | | + + + + ---+ | Procedure Note | + ---+ | Placido Yeh Conversion - 02/14/2019 3:25 PM PDT [facility]ES W | | CONTRAST09/09/2017 11:16 AM HISTORY:37 years. Male. Chest pain. Evaluate for coronary | | artery disease. TECHNIQUE:Patient arrived in the department with a resting heart rate of | | bpm and blood pressure of in normal sinus rhythm. Coronary CTA then obtained during | | intravenous administration of 125 mL IsoVue 370 contrast. Axial 0.6-mm images were | | obtained utilizing prospective gating at 70% of the cardiac cycle. Images were obtained | | after premedication with sequential doses of metoprolol tartrate IV to a total dose of | | mg IV metoprolol. A single 0.4 mg sublingual nitroglycerin spray was given immediately | | before scanning. Additional reconstructed full field images of the chest were utilized | | for noncardiac soft tissue evaluation. 3D image reconstruction of the coronary arteries | | were performed on a [employer] software platform. Dose reduction techniques were used | | including automated exposure control (AEC), iterative reconstruction technique, and/or | | mA and/or kV dose adjustments based on patient size. COMPARISON:None. FINDINGS: CORONARY | | ARTERIES:There is good visualization of the left main, LAD, circumflex, and right | | coronary artery. The patient is right dominant.Left Main: No calcified or soft plaque | | identified.LAD: No calcified or soft plaque identified.Ramus intermedius: Small small | | ramus intermedius, patent.Circumflex: No calcified or soft plaque identified.RCA: No | | calcified or soft plaque identified. ADDITIONAL FINDINGS:Normal cardiac size. Small | | pericardial effusion. No filling defects within the heart. Left-sided 3 vessel aortic | | arch. No enlarged mediastinal lymph nodes. Scattered small mediastinal lymph nodes, | | nonspecific. The index lymph node measuring 8 x 4 mm, image 46/series 7. The index | | prevascular lymph node measuring 1.4 x 0.4 cm, image 79/series 7. Normal thoracic | | esophagus. Pulmonary arteries are normal in caliber. No evidence of pulmonary embolism | | in visualized coronary arteries. Mild pulmonary emphysema. Diffuse bronchial wall | | thickening. Small right upper lobe pulmonary nodule measuring 3 x 2 mm, image 96/series | | 7. Normal visualized portion of abdomen. Accessory or replaced left hepatic artery. No | | acute osseous abnormality. IMPRESSION: 1. Patent epicardial coronary arteries without | | stenosis.2. Right coronary artery dominance.3. Pulmonary emphysema.4. Small right | | upper lobe pulmonary nodule measuring 3 x 2 mm, nonspecific. Given presence of pulmonary | | emphysema, recommend attention on follow-up low dose chest CT scan in 12 months.5. | | Small pericardial effusion. | | 12:21 PM | | | |Pulmonary arteries are normal in caliber. No evidence of pulmonary embolism in visualized c oronary arteries. | | | |Mild pulmonary emphysema. Diffuse bronchial wall thickening. Small right upper lobe pulmona ry nodule measuring 3 x 2 mm, image 96/series 7. | | | |Normal visualized portion of abdomen. Accessory or replaced left hepatic artery. No acute o sseous abnormality. | | | |IMPRESSION: | |1. Patent epicardial coronary arteries without stenosis. | |2. Right coronary artery dominance. | |3. Pulmonary emphysema. | |4. Small right upper lobe pulmonary nodule measuring 3 x 2 mm, nonspecific. Given presence of pulmonary emphysema, recommend attention on follow-up low dose chest CT scan in 12 month s. | |5. Small pericardial effusion. | | | | | | | | | + ---+ documented in this encounter Visit Diagnoses + + | Diagnosis | + + | Precordial pain | + + documented in this encounter
--- OUTSIDE RECORDS SUMMARY | ~2019-05-26 | XMS | Encounter Summary ---
Demographics + + + | Address | [address] | | | [place] [address] | + + + | Home Phone | | + + + | Preferred Language | Unknown | + + + | Marital Status | Single | + + + | Jain Affiliation | Unknown | + + + | Race | Unknown | + + + | Ethnic Group | Unknown | + + + Author + + + | Author | [facility] | | | and Mohsenana | + + + | Organization | [facility] | | | and Mohsenana | [...] Team Providers + +------+ + | Care Weatherization Administrator Name | Role | Phone | + +------+ + | Sandeep Garza DO | PCP | | + +------+ + Encounter Details +--------+ + + + + | Date | Type | Department | Care Team | Description | +--------+ + + + + | 03/24/ | Orders Only | [facility] [place] | Derrick De Dios | Cough | | 2017 | | PULMONARY [address] | [address] | | | | | [place], | [place] | | | | | [place] [address] | [place] [address] | | | | | [phone] | [phone] | | | | | | | [...] as of this encounter Plan of Treatment + + +--------+ + + | Name | Type | Priori | Associated Diagnoses | Order Schedule | | | | ty | | | + + +--------+ + + | Medical Cytology | Pathology | Routin | Cough | 1 Occurrences | | | and | e | | starting 03/24/2017 | | | Cytology | | | until 03/24/2018 | + + +--------+ + + documented as of this encounter Visit Diagnoses + + | Diagnosis | + + | Cough | + + documented in this encounter"
--- OUTSIDE RECORDS SUMMARY | ~2019-05-26 | XMS | Encounter Summary ---
Demographics + + + | Address | [address] | | | [place] [address] | + + + | Home Phone | | + + + | Preferred Language | Unknown | + + + | Marital Status | Single | + + + | Rastafarian Affiliation | Unknown | + + + | Race | Unknown | + + + | Ethnic Group | Unknown | + + + Author + + + | Author | [facility] | | | and Mohsenana | + + + | Organization | [facility] | | | and Mohsenana [...] Team Providers + +------+ + | Care Director Of Vocational Guidance Name | Role | Phone | + +------+ + | Sandeep Garza DO | PCP | | + +------+ + Encounter Details +--------+ + + + + | Date | Type | Department | Care Team | Description | +--------+ + + + + | 04/28/ | Orders Only | [facility] [place] | Derrick De Dios | Chronic cough | | 2017 | | PULMONARY [address] | [address] | (Primary Dx) | | | | [place], | [place] | | | | | [place] [address] | [place] [address] | | | | | [phone] | [phone] | | | | | | | [...] on filedocumented as of this encounter Results Pulmonary function test full [...] De Dios MD 04/29/2017 | | | [facility] | | |IMPRESSION: Spirometry is consistent with [...] Dios MD 04/29/2017 17:26 | | |[facility] | | | | | + + + documented in this encounter Visit Diagnoses + + | Diagnosis | + + | Chronic cough - Primary Cough | + + documented in this encounter"
--- OUTSIDE RECORDS SUMMARY | ~2019-05-26 | XMS | Encounter Summary ---
Demographics + + + | Address | [address] | | | [place] [address] | + + + | Home Phone | | + + + | Preferred Language | Unknown | + + + | Marital Status | Single | + + + | Restorationism Affiliation | Unknown | + + + | Race | Unknown | + + + | Ethnic Group | Unknown | + + + Author + + + | Author | [facility] | | | and Mohsenana | + + + | Organization | [facility] | [...] Team Providers + +------+ + | Care Emery Wheel Worker Name | Role | Phone | + [...] | (Primary Dx) | | | | [place], | [place] | | | | | [place] [address] | [place] [address] | | | | | [phone] | [phone] | | | | | | | [...] De Dios MD 04/29/2017 | | | [facility] | | |IMPRESSION: Spirometry is consistent with [...] Dios MD 04/29/2017 17:26 | | |[facility] | | | | | + + + documented in this encounter Visit Diagnoses + + | Diagnosis | + + | Chronic cough - Primary Cough | + + documented in this encounter"
--- OUTSIDE RECORDS SUMMARY | ~2019-05-26 | XMS | Encounter Summary ---
Demographics + + + | Address | [address] | | | [place] [address] | + + + | Home Phone | | + + + | Preferred Language | Unknown | + + + | Marital Status | Single | + + + | Zoroastrianism Affiliation | Unknown | + + + | Race | Unknown | + + + | Ethnic Group | Unknown | + + + Author + + + | Author | [facility] | | | and Mohsenana | + + + | Organization | [facility] | | | [...] Team Providers + +------+ + | Care Purchasing Engineer Name | Role | Phone | [...] | | Pleurodynia | Derrick | [address] | | | | | Cough in | MD Negrito | [place], | | | | | adult | [address] | [place] [address] | | | | | Procedures | [address] | Phone: | | | | | CT Chest | [place], [place] | [phone] | | | | | High | [address] | Fax: | | | | | Resolution | Phone: | [phone] | | | | | [place] Contrast | [phone] | | | | | | | Fax: | | | | | | | [phone] | | +--------+--------+ + + + + [...] | | Pleurodynia | Derrick | [address] | | | | | Cough in | MD Negrito | [place], | | | | | adult | [address] | [place] [address] | | | | | Procedures | [address] | Phone: | | | | | CT Chest | [place], [place] | [phone] | | | | | High | [address] | Fax: | | | | | Resolution | Phone: | [phone] | | | | | WO Contrast | [phone] | | | | | | | Fax: | | | | | | | [phone] | | +--------+--------+ + + + + Encounter Details +--------+ + + + + | Date | Type | Department | Care Team | Description | +--------+ + + + + | 04/29/ | Hospital | [facility] | Derrick De Dios | Pleurodynia; | | 2016 | Encounter | MED CTR [address] | [address] | Cough in adult | | | | [address] [place], | [place] | | | | | [place] [address] | [place] [address] | | | | | [phone] | [phone] | | | | | | | [...]
--- OUTSIDE RECORDS SUMMARY | ~2019-05-26 | XMS | Encounter Summary ---
Demographics + + + | Address | [address] | | | [place] [address] | + + + | Home Phone | | + + + | Preferred Language | Unknown | + + + | Marital Status | Single | + + + | Bahai Affiliation | Unknown | + + + | Race | Unknown | + + + | Ethnic Group | Unknown | + + + Author + + + | Author | [facility] | | | and Mohsenana | + + + | Organization | [facility] | | | and Mohsenana [...] Team Providers + +------+ + | Care Material Control Clerk Name | Role | Phone | + +------+ + | No, Physician | PCP | Unavailable | + +------+ + Reason for Visit + + + | Reason | Comments | + + + | Flank Pain | | + + + Encounter Details +--------+ + + + + | Date | Type | Department | Care Team | Description | +--------+ + + + + | 01/16/ | Emergency | [facility] | Mariana, | Intercostal muscle | | 2014 | | MED CTR EMER[facility]Y | Padilla Mederos MD [address] | strain, initial | | | | CENTER [address] | [address] [place] | encounter (Primary | | | | [place], [place] | [place] [address] | Dx) | | | | [address] | [phone] | | | | | [phone] | | | +--------+ + + + [...] + + + | Blood Pressure | - | - | | + + + + + | Pulse | 94 | 01/16/2014 5:07 PM | | | | | PDT | | + + + + + | Temperature | 37.4 C (99.3 F) | 01/16/2014 5:07 PM | | | | | PDT | | + + + + + | Respiratory Rate | 16 | 01/16/2014 5:07 PM | | | | | PDT | | + + + + + | Oxygen Saturation | 97% | 01/16/2014 5:07 PM | | | | | PDT | | + + + + + | Inhaled Oxygen | - | - | | | Concentration | | | | + + + + + | Weight | 77.1 kg (170 lb) | 01/16/2014 5:07 PM | | | | | PDT | | + + + + + | Height | 175.3 cm (5' 9") | 01/16/2014 5:07 PM | | | | | PDT | | + + + + + | Body Mass Index | 25.1 | 01/16/2014 5:07 PM | | | | | PDT | | + + + + + documented in this encounter Discharge Instructions Instructions Padilla Peña MD - 01/16/2014Formatting of this note might be differe nt from the original. Ice 15-20 minutes 4 times daily. Use an anti-inflammatory How to obtain a personal physician: Check with your insurance provider for a list of authorized medical providers. Call local medical groups to obtain names of physicians currently accepting new patients an d schedule an appointment. If you're having difficulty, feel free to contact our hospital care managers ([phone]) for assistance. [facility] Internal Medicine or Family Medicine [address] [place] [address] Latisha [place]. [phone] [place] [facility] [address] [facility] [phone] [facility] Check with [facility] about state assistance programs. [address] [phone] [facility] Clinic (will not fill narcotic medications) [address] [facility] [phone] Tuesday 3 PM to 5 PM Tuesday 3 PM 5 PM [employer] [address] [facility] [phone] Primary Care Accepting New Patients 12/27/2013 Dr. Ramonita Guerrero Family Medicine Obstetrics Scheduling Special interest in preventative care, women s health, obstetrics and pediatrics. Dr. Sergei Valadez Internal Medicine Scheduling Special interest in gastro-intestinal diseases and dermatology. Dr. Padilla Jenkins Family Medicine Scheduling Special interest in geriatrics. Dr. Jonathan Darling Family Medicine Scheduling Dr. Francisco Palafox Family Medicine Obstetrics Scheduling Full scope family medicine- including obstetrics, pediatrics and adult medicine. [address] [place] [address] [place] [address] documented in this encounter Plan of Treatment Not on filedocumented as of this encounter Procedures + +--------+ + + + | Procedure Name | Priori | Date/Time | Associated Diagnosis | Comments | | | ty | | | | + +--------+ + + + | XR ABDOMEN AP | Routin | 01/16/2014 | | Results for this | | UPRIGHT KUB AND PA | e | 6:12 PM | | procedure are in the | | CHEST | | PDT | | results section. | + +--------+ + + + | URINALYSIS WITH | STAT | 01/16/2014 | | Results for this | | MICROSCOPIC WITH | | 5:44 PM | | procedure are in the | | CULTURE IF INDICATED | | PDT | | results section. | + +--------+ + + + documented in this encounter Results XR Abd Supine and Upright w 1 Vw Chest (01/16/2014 6:12 PM PDT) + + | Specimen | + + | | + + + + + | Narrative | Performed At | + + + | XR ABDOMEN SUPINE AND UPRIGHT WITH 1 VW CHEST. 01/16/2014 6:12 PM | [facility] | | HISTORY: right flank pain . COMPARISON: Small bowel | LAB | | follow-through 09/17/2005 FINDINGS: Heart size and mediastinal | | | contours are within normal limits. The lungs are clear, without | | | pleural effusion or pneumothorax. Gas intermixed with stool in the | | | nondilated large bowel extending to the region of the rectum. No | | | focally dilated small bowel loops. Several small phleboliths seen | | | in the pelvis. No evidence of free intraperitoneal gas. No acute | | | osseous or soft tissue abnormalities. IMPRESSION - No acute | | | radiographic abnormality of the chest or abdomen. Dictated and | | | Signed by: Mono Figueredo MD Electronically signed: 01/17/2014 | | | 9:35 AM | | + + + + + | Procedure Note | + + | Rao, Rad Results In - 01/17/2014 9:38 AM PDT XR ABDOMEN SUPINE AND UPRIGHT WITH 1 VW | | CHEST. 01/16/2014 6:12 PMHISTORY: right flank pain . COMPARISON: Small bowel | | follow-through 09/17/2005FINDINGS:Heart size and mediastinal contours are within normal | | limits. The lungs areclear, without pleural effusion or pneumothorax.Gas intermixed | | with stool in the nondilated large bowel extending to the regionof the rectum. No | | focally dilated small bowel loops. Several small phlebolithsseen in the pelvis. No | | evidence of free intraperitoneal gas. No acute osseousor soft tissue | | abnormalities.IMPRESSION -No acute radiographic abnormality of the chest or | | abdomen.Dictated and Signed by: Mono Figueredo MD Electronically signed: 01/17/2014 | | 9:35 AM | |of the rectum. No focally dilated small bowel loops. Several small phleboliths | |seen in the pelvis. No evidence of free intraperitoneal gas. No acute osseous | |or soft tissue abnormalities. | | | | | |IMPRESSION - | |No acute radiographic abnormality of the chest or abdomen. | | | |Dictated and Signed by: Mono Figueredo MD | | Electronically signed: 01/17/2014 9:35 AM | + + + +---------+ + + | Performing | Address | City/State/Zipcode | Phone Number | | Organization | | | | + +---------+ + + | [facility] | | | [phone] | + +---------+ + + | MISCELANIOUS LAB | | | [phone] | + +---------+ + + Urinalysis with Microscopic with Culture if Indicated (01/16/2014 5:44 PM PDT) + + + + + + | Component | Value | Ref Range | Performed | Pathologist | | | | | At | Signature | + + + + + + | Color | Yellow | Light Yellow, | [facility] | | | | | Yellow | [facility] | | | | | | MEDICAL | | | | | | CENTER - | | | | | | LABORATORY | | + + + + + + | Clarity | Clear | Clear | [facility] | | | | | | [facility] | | [facility] | | | MEDICAL | | | | | | CENTER - | | | | | | LABORATORY | | + + + + + + | pH, Urine | 5.5 | 5.0 - 8.0 | [facility] | | | | | [facility] | | | | | | MEDICAL | | | | | | CENTER - | | | | | | LABORATORY | | + + + + + + | Specific | >=1.030 | 1.001 - 1.030 | [facility] | | | [place] | | | [facility] | | | | | | MEDICAL | | | | | | CENTER - | | | | | | LABORATORY | | + + + + + + | Protein, | Negative | Negative, | [facility] | | | Urine | | Trace, 30 mg/dL | [facility] | | | | | | MEDICAL | | | | | | CENTER - | | | | | | LABORATORY | | + + + + + + | Blood, | Trace (A) | Negative | [facility] | | | Urine | | | [facility] | | | | | | MEDICAL | | | | | | CENTER - | | | | | | LABORATORY | | + + + + + + | Glucose, | Negative | Negative | [facility] | | | Urine | | | [facility] | | | | | | MEDICAL | | | | | | CENTER - | | | | | | LABORATORY | | + + + + + + | Ketones, | Negative | Negative | [facility] | | | Urine | | | [facility] | | | | | | MEDICAL | | | | | | CENTER - | | | | | | LABORATORY | | + + + + + + | Bilirubin, | Negative | Negative | [facility] | | | Urine | | | [facility] | | | | | | MEDICAL | | | | | | CENTER - | | | | | | LABORATORY | | + + + + + + | Nitrite, | Negative | Negative | [facility] | | | Urine | | | [facility] | | | | | | MEDICAL | | | | | | CENTER - | | | | | | LABORATORY | | + + + + + + | Leukocyte | Negative | Negative | [facility] | | | Esterase, | | | [facility] | | | Urine | | | MEDICAL | | | | | | CENTER - | | | | | | LABORATORY | | + + + + + + | Urobilinoge | 0.2 E.U./dL | 0.2 E.U./dL | [facility] | | | n, Urine | | | [facility] | | | | | | MEDICAL | | | | | | CENTER - | | | | | | LABORATORY | | + + + + + + | WBC UA | 0-2 | 0 - 2 /HPF | [facility] | | | | | [facility] | | | | | | MEDICAL | | | | | | CENTER - | | | | | | LABORATORY | | + + + + + + | RBC UA | 0-2 | 0 - 2 /HPF | [facility] | | | | | | [facility] | | | | | | MEDICAL | | | | | | CENTER - | | | | | | LABORATORY | | + + + + + + | SQUAMOUS | 0-2 | 0 - 2 /LPF | [facility] | | | EPITHELIAL | | | [facility] | | | UA | | | MEDICAL | | | | | | CENTER - | | | | | | LABORATORY | | + + + + + + | BACTERIA UA | Negative | Negative /HPF | [facility] | | | | | | [facility] | | | | | | MEDICAL | | | | | | CENTER - | | | | | | LABORATORY | | + + + + + + + + | Specimen | + + | Urine | + + + + + + + | Performing | Address | City/State/Zipcode | Phone Number | | Organization | | | | + + + + + | [facility] | [address] | [place] | [phone] | | [facility] | | [address] | | | - LABORATORY | | | | + + + + + | [facility] | [address] | [place], [place] | | | [facility] | | [address] | | | - LABORATORY | | | | + + + + + documented in this encounter Visit Diagnoses + + | Diagnosis | + + | Intercostal muscle strain, initial encounter - Primary | + + documented in this encounter
--- OUTSIDE RECORDS SUMMARY | ~2019-05-26 | XMS | Encounter Summary ---
Demographics + + + | Address | [address] | | | [place] [address] | + + + | Home Phone | | + + + | Preferred Language | Unknown | + + + | Marital Status | Single | + + + | Protestant Affiliation | Unknown | + + + | Race | Unknown | + + + | Ethnic Group | Unknown | + + + Author + + + | Author | [facility] | | | and Mohsenana | + + + | Organization | [facility] | | | and Mohsenana [...] Team Providers + +------+ + | Care Environmental Sciences Professor Name | Role | Phone | + [...] | | Pleurodynia | Derrick | [address] | | | | | Cough in | MD Negrito | [place], | | | | | adult | [address] | [place] [address] | | | | | Procedures | [address] | Phone: | | | | | CT Chest | [place] | [phone] | | | | | High | [address] | Fax: | | | | | Resolution | Phone: | [phone] | | | | | WO Contrast | [phone] | | | | | | | Fax: | | | | | | | [phone] | | +--------+--------+ + + + + [...] | | | | | issues, | [address] | MD Negrito | | | | | chest all | [address] | [address] | | | | | pain | [address] | [place] | | | | | | [address] | [place] | | | | | | [place] | [address] Phone: | | | | | | [address] | [phone] | | | | | | Phone: | Fax: | | | | | | [phone] | [phone] | | | | | | Fax: | | | | | | | [phone] | | +--------+--------+ + + + + Encounter Details +--------+---------+ + + + | Date | Type | Department | Care Team | Description | +--------+---------+ + + + | 03/23/ | Office | [facility] | Derrick De Dios | Pleurodynia (Primary | | 2017 | Visit | PULMONARY [address] | [address] | Dx); Cough in | | | | [place], | [place] | adult; [place]igarette | | | | [place] [address] | [place] [address] | nicotine dependence | | | | [phone] | [phone] | without complication | | | | [...]
--- OUTSIDE RECORDS SUMMARY | ~2019-05-26 | XMS | Encounter Summary ---
Demographics + + + | Address | [address] | | | [place] [address] | + + + | Home Phone | | + + + | Preferred Language | Unknown | + + + | Marital Status | Single | + + + | Latter Day Affiliation | Unknown | + + + | Race | Unknown | + + + | Ethnic Group | Unknown | + + + Author + + + | Author | [facility] | | | and Mohsenana | + + + | Organization | [facility] | | | and Mohsenana [...] Team Providers + +------+ + | Care News Production Supervisor Name | Role | Phone | + +------+ + PCP | Unavailable | + +------+ + Encounter Details +--------+ + + + + | Date | Type | Department | Care Team | Description | +--------+ + + + + | 09/17/ | Hospital | [facility] | John Montero MD | | | 2005 | Encounter | MED CTR GENERIC OP | [address] | | | | | CONV DEPT [address] | [address] | | | | | [place], | [id number] | | | | | [place] [address] | | | | | | [phone] | | | +--------+ + + + [...]
--- OUTSIDE RECORDS SUMMARY | ~2019-05-26 | XMS | Encounter Summary ---
Demographics + + + | Address | [address] | | | [place] [address] | + + + | Home Phone | | + + + | Preferred Language | Unknown | + + + | Marital Status | Single | + + + | Mandaen Affiliation | Unknown | + + + | Race | Unknown | + + + | Ethnic Group | Unknown | + + + Author + + + | Author | [facility] | | | and Mohsenana | + + + | Organization | [facility] | | | and [...] Team Providers + +------+ + | Care Calf Skinner Name | Role | Phone | + [...] [address] | | | | | [place], | [place] | | | | | [place] [address] | [place] [address] | | | | | [phone] | [phone] | | | | | | | [...]
--- OUTSIDE RECORDS SUMMARY | ~2019-05-26 | XMS | Encounter Summary ---
Demographics + + + | Address | [address] | | | [place] [address] | + + + | Home Phone | | + + + | Preferred Language | Unknown | + + + | Marital Status | Single | + + + | Advent Affiliation | Unknown | + + + | Race | Unknown | + + + | Ethnic Group | Unknown | + + + Author + + + | Author | [facility] | | | and Mohsenana | + + + | Organization | [facility] | | | and [...] Team Providers + +------+ + | Care Jockey Agent Name | Role | Phone | + +------+ + | Sandeep Garza DO | PCP | | + +------+ + Encounter Details +--------+ + + + + | Date | Type | Department | Care Team | Description | +--------+ + + + + | 04/29/ [facility] | Derrick De Dios | Chronic cough | | 2017 | Encounter | MED CTR PULMONARY | MD [address] | | | | | [address] | [place] | | | | | [place], | [place] [address] | | | | | [place] [address] | [phone] | | | | | [phone] | | | +--------+ + + + [...] Dios MD 04/29/2017 | | | 17:26[facility] | | |IMPRESSION: Spirometry is consistent [...] Dios MD 04/29/2017 17:26 | | |[facility] | | | | | + + + documented in this encounter Visit Diagnoses + + | Diagnosis | + + | Chronic cough Cough | + + documented in this encounter
--- OUTSIDE RECORDS SUMMARY | ~2019-05-26 | XMS | Encounter Summary ---
Demographics + + + | Address | [address] | | | [place] [address] | + + + | Home Phone | | + + + | Preferred Language | Unknown | + + + | Marital Status | Single | + + + | Yazdanism Affiliation | Unknown | + + + | Race | Unknown | + + + | Ethnic Group | Unknown | + + + Author + + + | Author | [facility] | | | and Mohsenana | + + + | Organization | [facility] | | | and Mohsenana | + + + | Address | Unknown | + + + | Phone | Unavailable | + + + Support + + +---------+ + | Name | Relationship | Address | Phone | + + +---------+ + | Aylsa Ojeda | ECON | Unknown | | + + +---------+ + Care Team Providers + +------+ + | Care Life Sciences Instructor Name | Role | Phone | + +------+ + | Sandeep Garza DO | PCP | | + +------+ + Encounter Details +--------+ + + + + | Date | Type | Department | Care Team | Description | +--------+ + + + + | 03/23/ | Orders Only | [facility] [place] | Derrick De Dios | Chest pain, | | 2017 | | PULMONARY [address] | MD [address] | unspecified type | | | | [place], | [place] | (Primary Dx) | | | | [place] [address] | [place] [address] | | | | | [phone] | [phone] | | | | | | | [...] on filedocumented as of this encounter Results XR Chest PA and Lateral (03/23/2017 8:43 [...] Procedure Note | + + | Rao, Placido Results In - 03/23/2017 8:52 AM PDT [...] + + | Chest pain, unspecified type - Primary | + + documented in this encounter"
--- OUTSIDE RECORDS SUMMARY | ~2019-05-26 | XMS | Encounter Summary ---
Demographics + + + | Address | [address] | | | [place] [address] | + + + | Home Phone | | + + + | Preferred Language | Unknown | + + + | Marital Status | Single | + + + | Alevism Affiliation | Unknown | + + + | Race | Unknown | + + + | Ethnic Group | Unknown | + + + Author + + + | Author | [facility] | | | and Mohsenana | + + + | Organization | [facility] | | | [...] Team Providers + +------+ + | Care Extras Casting Director Name | Role | Phone | [...] Cough in adult | | | | [place], | | | | | | [place] [address] | | | | | | [phone] | | | +--------+ + + + [...]
--- OUTSIDE RECORDS SUMMARY | ~2019-05-26 | XMS | Encounter Summary ---
Demographics + + + | Address | [address] | | | [place] [address] | + + + | Home Phone | | + + + | Preferred Language | Unknown | + + + | Marital Status | Single | + + + | Baptism Affiliation | Unknown | + + + | Race | Unknown | + + + | Ethnic Group | Unknown | + + + Author + + + | Author | [facility] | | | and Mohsenana | + + + | Organization | [facility] | | | and [...] Team Providers + +------+ + | Care Physical Therapist Clinic Director Name | Role | Phone | [...] [address] | | | | | [place], | [place] | | | | | [place] [address] | [place] [address] | | | | | [phone] | [phone] | | | | | | | [...] + | [facility] | [address] | [place] | [phone] | | [facility] | | [address] | | | - LABORATORY | | | | + + + + + documented in this encounter Visit Diagnoses + + | Diagnosis | + + | Cough - Primary | + + documented in this encounter"
--- OUTSIDE RECORDS SUMMARY | ~2019-05-26 | XMS | Encounter Summary ---
Demographics + + + | Address | [address] | | | [place] [address] | + + + | Home Phone | | + + + | Preferred Language | Unknown | + + + | Marital Status | Single | + + + | Shinto Affiliation | Unknown | + + + | Race | Unknown | + + + | Ethnic Group | Unknown | + + + Author + + + | Author | [facility] | | | and Mohsenana | + + + | Organization | [facility] | | | and Mohsenana [...] Team Providers + +------+ + | Care Accounts Receivable Administrator Name | Role | Phone | [...] | | | | | [place], | [address] | MD Negrito | | | | | chest all | [address] | [address] | | | | | pain | [address] | [place] | | | | | | [address] | [place] | | | | | | [place] | [address] Phone: | | | | | | [address] | [phone] | | | | | | Phone: | Fax: | | | | | | [phone] | [phone] | | | | | | Fax: | | | | | | | [phone] | | +--------+--------+ + + + + Encounter Details +--------+---------+ + + + | Date | Type | Department | Care Team | Description | +--------+---------+ + + + | 04/29/ | Office | [facility] [place] | Derrick De Dios | Mild emphysema (HCC) | | 2017 | Visit | PULMONARY [address] | MD [address] | (Primary Dx); | | | | [place], | [place] | Decreased diffusion | | | | [place] [address] | [place] [address] | capacity of lung; | | | | [phone] | [phone] | Pleurodynia | | | | | [...] De Dios MD - 04/29/2017 10:20 AM EMS20-tlip-[id number] much decreased smoker who m I saw [...]
--- OUTSIDE RECORDS SUMMARY | ~2019-05-26 | XMS | Encounter Summary ---
Demographics + + + | Address | [address] | | | [place] [address] | + + + | Home Phone | | + + + | Preferred Language | Unknown | + + + | Marital Status | Single | + + + | Hinduism Affiliation | Unknown | + + + | Race | Unknown | + + + | Ethnic Group | Unknown | + + + Author + + + | Author | [facility] | | | and Mohsenana | + + + | Organization | [facility] | | | and [...] Team Providers + +------+ + | Care Auto Dealership Porter Name | Role | Phone | + +------+ + | Sandeep Garza DO | PCP | | + +------+ + Encounter Details +--------+ + + + + | Date | Type | Department | Care Team | Description | +--------+ + + + + | 01/29/ | Orders Only | [facility] | Provider, | | | 2018 | | SYSTEM GENERIC OP | [address] | | | | | [address] | [place] | | | | | [address] [place], [place] | [place] [address] | | | | | [address] | | | | | | [phone] | | | +--------+ + + + [...]
--- OUTSIDE RECORDS SUMMARY | ~2019-05-26 | XMS | Encounter Summary ---
Demographics + + + | Address | [address] | | | [place] [address] | + + + | Home Phone | | + + + | Preferred Language | Unknown | + + + | Marital Status | Single | + + + | Restoration Affiliation | Unknown | + + + | Race | Unknown | + + + | Ethnic Group | Unknown | + + + Author + + + | Author | [facility] | | | and Mohsenana | + + + | Organization | [facility] | [...] Team Providers + +------+ + | Care Check Embosser Name | Role | Phone | + [...] | [id number] | | | | | [phone] | | | | | | [phone] | | | +--------+ + + + [...] TR Vmax: | | | 2.21 m/s Marble Cutter Operator: ANDREA Authenticated by: Cj Garner | | [...] cmLVPWd: 0.87 cmLVOT Area: | | 3.43 [id number] Diam: 2.09 cm%FS: 35.75 %EF(Teich): 65.20 %ESV(Teich): [...] mlLAESV Index (A-L): 18.18 ml/m2LAAs A2C: 13.35 pg7BSXHJ A-L | | A2C: 35.62 mlLALs A2C: 4.24 cmLAAs A4C: 13.28 sa3GRESY A-L A4C: 34.71 mlLALs | | A4C: 4.31 cmRAAs: 10.91 ql2WQWCJ A-L: 25.97 mlRAESV MOD: 25.56 mlRALs: 3.89 | | cmTAPSE: 2.48 cmAV maxP.80 mmHgAV meanP.15 mmHgAV Vmax: 0.97 m/Josesito | | Vmean: 0.69 m/Josesito VTI: 17.53 cmAVA Vmax: 3.26 cm2AVA (VTI): 3.25 mu6ZKQS Vmax: | | 0.00 cm2/m2AVAI (VTI): 0.00 cm2/m2LVOT maxP.43 mmHgLVOT meanP.85 mmHgLVSI | | Dopp: 29.24 ml/m2LVSV Dopp: 57.03 mlLVOT Vmax: 0.92 m/sLVOT Vmean: 0.63 m/sLVOT | | VTI: 16.59 cmMV A Caleb: 0.48 m/sMV DecT: 205.80 msMV E Caleb: 0.56 m/sMV E/A | | Ratio: 1.16MV PHT: 59.68 msMVA By PHT: 3.68 bm4Arcsqf e': 0.09 m/sSeptal E/e': | | 6.23RAP: 5 mmHgRVSP: 24.53 mmHgTR maxP.53 mmHgTR Vmax: 2.21 m/s | | Marble Cutter Operator: DHAuthenticated by: Cj Shepherd Date/Time: 01-05-2017 06:45:04 [...] |TR Vmax: 2.21 m/s | | | |Marble Cutter Operator: ANDREA | |Authenticated by: Cj Garner | [...]
--- OUTSIDE RECORDS SUMMARY | ~2019-05-26 | XMS | Encounter Summary ---
Demographics + + + | Address | [address] | | | [place] [address] | + + + | Home Phone | | + + + | Preferred Language | Unknown | + + + | Marital Status | Single | + + + | Episcopal Affiliation | Unknown | + + + | Race | Unknown | + + + | Ethnic Group | Unknown | + + + Author + + + | Author | [facility] | | | and Mohsenana | + + + | Organization | [facility] | | | and Mohsenana [...] Team Providers + +------+ + | Care Service Center Manager Name | Role | Phone | + [...] | | | | CENTER [address] | [address] [place] | encounter (Primary | | | | [place], [place] | [place] [address] | Dx) | | | | [address] | [phone] | | | | | [phone] | | | +--------+ + + + [...] free to contact our hospital care managers ([phone]) for assistance. [facility] Internal Medicine or Family Medicine [address] [place] [address] Latisha Renetta Jackson. [phone] [place] [facility] [address] [facility] [phone] [facility] Check with [facility] about state assistance programs. [address] [facility] [phone] [facility] (will not fill narcotic medications) [address] [phone] Tuesday 3 PM to 5 PM Tuesday 3 PM 5 PM Communication Science [address] [facility] [phone] [facility] Care Accepting New Patients 12/27/2013 Dr. [...] medicine- including obstetrics, pediatrics and adult medicine. [address] [place] [address] [place] [address] documented in this encounter Plan of Treatment [...] + | MISCELLANEOUS LAB | | | [phone] | + +---------+ + + | MISCELANIOUS LAB | | | [phone] | + +---------+ + + Urinalysis with [...] - 1.030 | [facility] | | | [place] | | | [facility] | | [...] | | | | | | [facility] | | | | | | MEDICAL [...] + | [facility] | [address] | [place] | [phone] | | [facility] | | [address] | | | - LABORATORY | | | | + + + + + | [facility] [address] | [address] | [place], [place] | | | [facility] | | [address] | | | - LABORATORY | | | | + + + + + documented in this encounter Visit Diagnoses + + | Diagnosis | + + | Intercostal muscle strain, initial encounter - Primary | + + documented in this encounter
--- OUTSIDE RECORDS SUMMARY | ~2019-05-26 | XMS | Encounter Summary ---
Demographics + + + | Address | [address] | | | [place] [address] | + + + | Home Phone | | + + + | Preferred Language | Unknown | + + + | Marital Status | Single | + + + | Orthodox Affiliation | Unknown | + + + | Race | Unknown | + + + | Ethnic Group | Unknown | + + + Author + + + | Author | [facility] | | | and Mohsenana | + + + | Organization | [facility] | | [...] Providers + +------+ + | Care Director Television Name | Role | Phone | + [...] | | | | CENTER [address] | [address] | | | | | [place], [place] | [place], [place] | | | | | [address] | [address] | | | | | [phone] | | | +--------+ + + + [...] Advil for pain unless contraindicated. Try using [id number]-[id number]-[id number] oral analgesic medications to assist in easing the pain. Practice good oral hygiene, do saltwater gargles for mouth cleansing. Please followup with dental clinic, the lower available resources. Dental Resources in the [facility] Care: [phone] Emergency care check-in times Tuesday through : 7 AM and 11 AM Tuesday: 7 AM This is a first-come first-serve service with limited space so arrive early and expect a possible several hour wait. [facility] [place]: [phone] [facility] [place] information: [phone] documented in this encounter Medications at Time [...] 1.8 mLs | | | | 1:200,000 0.5-1:[id number] % | | 15 8:38 | | [...]
--- OUTSIDE RECORDS SUMMARY | ~2019-05-26 | XMS | Encounter Summary ---
Demographics + + + | Address | [address] | | | [place] [address] | + + + | Home Phone [...] Author | [facility] | | | and Mohsenana | + + + | Organization | [facility] | | | and [...] Team Providers + +------+ + | Care Renewable Energy Project Manager Name | Role | Phone | + +------+ + | Sandeep Garza DO | PCP | | + +------+ + Encounter Details +--------+ + + + + | Date | Type | Department | Care Team | Description | +--------+ + + + + | 09/09/ | Hospital | [facility] | Conversion | Precordial pain | | 2018 | Encounter | [facility] [address] | Transaction, | | | | | [address] | Provider Unknown | | | | | [place], [place] | [phone] | | | | | [address] | | | | | | [phone] | Cj Garner, | | | | | | MD [address] | | | | | | [place] | | | | | | [address] | | | | | | | [...] 114 Date of Service: 09/09/171140 Status: Signed Production Floater: Daphnie Umana RN (Registered Nurse) Procedure complete. [...] the coronary arteries were performed on a [email or web address] | | | software platform. Dose reduction [...] arteries | | were performed on a [employer] software platform. Dose reduction techniques were used [...]
--- OUTSIDE RECORDS SUMMARY | ~2019-05-26 | XMS | Encounter Summary ---
Demographics + + + | Address | [address] | | | [place] [address] | + + + | Home Phone | | + + + | Preferred Language | Unknown | + + + | Marital Status | Single | + + + | Christianity Affiliation | Unknown | + + + | Race | Unknown | + + + | Ethnic Group | Unknown | + + + Author + + + | Author | [facility] | | | and Mohsenana | + + + | Organization | [facility] | | | and Mohsenana [...] Team Providers + +------+ + | Care Aerial Photograph Interpreter Name | Role | Phone | + [...] | unspecified type | | | | [place], | [place] | (Primary Dx) | | | | [place] [address] | [place] [address] | | | | | [phone] | [phone] | | | | | | | [...]
[~2019-05-26 15:31] MED LIST changes: +PROTONIX40 MG PO; +ZOFRAN ODT4 MG PO
== END 2019-05-26 18:26 | disposition home or self-care (01) ==
LOC: ED 15:31
DX: R10.32 Left lower quadrant pain (principal); F17.200 Nicotine dependence, unspecified, uncomplicated
CPT/HCPCS: 74177; 80053; 81001; 83690; 85025; 96361; 99284-25; J2270; J2405; J7030; Q9967

== ENCOUNTER 2022-11-27 02:20 | Emergency (ER) | payer OTHER ==
[~2022-11-27] VITALS: Ht 177.8 cm; Wt 0.3 kg
[2022-11-27] MEDS ORDERED: PREDNISONE20 MG PO ×2 (02:52→02:57)
[2022-11-27 03:21] VITALS: BP 144/82
== END 2022-11-27 03:21 | disposition home or self-care (01) ==
LOC: ED 02:20
DX: L25.9 Unspecified contact dermatitis, unspecified cause (principal); F17.200 Nicotine dependence, unspecified, uncomplicated
CPT/HCPCS: 96372; 99282; J1100; Q0163

== ENCOUNTER 2024-03-30 10:27 | Emergency (ER) | payer SELFPAY ==
[~2024-03-30] VITALS: Ht 177.8 cm; Wt 93.3 kg
[~2024-03-30 10:27] MED LIST changes: +PREDNISONE20 MG PO
--- OUTSIDE RECORDS SUMMARY | 2024-03-30 10:31 | XMS ---
PreManage Notification: BROOKLYN SANDERSON Security Audit Mgr Events No recent Security Events currently on file CRITERIA MET - [facility] - 2 Visits in 30 Days CARE PROVIDERS [facility]I [facility] 06/06/2018-Current PHONE: Unknown -[place]- Dentist: [facility] PHONE: [phone] Sushil has no Care Guidelines for this patient. Camelia VISIT COUNT (12 MO.) 2 [facility] TOTAL 2 NOTE: Visits indicate total known visits. ED/UCC VISIT TRACKING (12 MO.) 03/30/2024 10:27 [facility] [place] TYPE: Emergency COMPLAINT: - RT SIDED NUMBNESS 03/24/2024 16:24 [facility] [place] TYPE: Emergency COMPLAINT: - FACIALL NUMBNESS DIAGNOSES: - Anesthesia of skin - Essential (primary) hypertension - Nicotine dependence, unspecified, uncomplicated - Paresthesia of skin INPATIENT VISIT TRACKING (12 MO.) No inpatient visits to display in this time frame [email or web address]
[2024-03-30 15:48] VITALS: BP 142/109
== END 2024-03-30 15:48 | disposition home or self-care (01) ==
LOC: ED 10:27
DX: R20.2 Paresthesia of skin (principal); K50.90 Crohn's disease, unspecified, without complications; F17.200 Nicotine dependence, unspecified, uncomplicated
CPT/HCPCS: 70553; 99284; A9577